=== PATIENT | female | born 1960 | race Caucasian/White ===

== ENCOUNTER 2018-12-24 21:59 | Emergency (ER) | payer OTHER, SELFPAY ==
--- NOTE | 2018-12-24 22:05 | DI.RAD_ITS ---
SYMPTOMS/DIAGNOSIS: FALL, PAIN, SWELLING RIGHT ANKLE AND RIGHT TIB/FIB: Multiple views were obtained. No priors. There is an oblique fracture of the distal fibula at the metadiaphyseal junction. The distal fracture fragment is laterally angulated and displaced almost one shafts width laterally. There is an oblique fracture through the base of the medial malleolus with lateral displacement of the distal fracture. There is a moderately displaced posterior malleolar fracture. There is lateral subluxation of the ankle joint almost 2 cm laterally. There is soft tissue swelling about the ankle. No other fracture or dislocation is seen. IMPRESSION: Trimalleolar fracture with lateral subluxation of the ankle joint.
[2018-12-24 22:09] VITALS: BP 126/71; PULSE 87; RESP 18; TEMP 37.6; O2SAT 98
--- NOTE | 2018-12-24 22:40 | ED.GENADUL_ITS ---
Discharge Plan Disposition Patient Disposition: HOME Discharge Details Chief Complaint: Orthopedic Clinical Impression: Closed trimalleolar fracture of right ankle Primary Care Provider: Rajesh Daugherty ED Provider: Abdulaziz Hoyt Home Meds and New Rx's Prescriptions: New tramadol [Ultram] 50 mg tablet 50 mg PO BID PRN (Reason: pain) Qty: 10 RF: 0 Continued calcium carbonate-vitamin D3 1 EACH tablet 1 ea PO RF: 0 acetaminophen [Acetaminophen Extra Strength] 500 MG tablet 500 mg PO Q3H PRN Qty: 2 RF: 0 ibuprofen [Ibuprofen IB] 200 MG tablet 600 mg PO PRN RF: 0 Discharge Instructions Instructions: Ankle Fracture (ED) Additional Instructions: Please take ibuprofen over the counter - 600mg every 6 hours for pain. Please take tylenol 650mg every 6 hours as needed for pain. Keep splint intact and elevate leg as much as possible. Use crutches - NO WEIGHT BEARING ON RIGHT LEG. Please follow-up with orthopedics. Call on Tuesday to arrange follow-up. Please contact your primary care physician to arrange follow-up. Return to the ER for any worsening or new concerning symptoms. Referrals: Vinay Titus MD [ [facility] STAFF PHYSICIAN] - Medical Decision Making 87-year-old female here with mechanical fall and injury to her right ankle. Ankle is deformed and swollen, quite tender to palpation. She is neurovascular intact distally. X-ray of the ankle and tib-fib reviewed and interpreted by me: Trimalleolar fracture. I called and discussed the case with Dr. Titus, smoke control supervisor orthopedics, who recommended reduction and posterior splinting and outpatient follow-up for likely ORIF this week. Patient provided verbal and written informed consent for hematoma block. Hematoma block performed without complication and patient had significant reduction in pain. Ankle fracture was reduced by me. A posterior splint was applied by me. Patient neurovascular intact post reduction and splinting. Postreduction tib fib imaging was reviewed by radiology: IMPRESSION: Reduction of trimalleolar fracture subluxation. I obtained additional oblique view which did demonstrate minimal subluxation. Plan will be for patient to follow-up with orthopedics for likely ORIF of this unstable fracture. She was instructed to keep splint intact and remain nonweightbearing on crutches. She was instructed to call the orthopedic office on Tuesday to arrange outpatient follow-up. HPI General Mode of arrival: EMS . Date/Time Provider Initiated Documentation: 12/24/18 22:05 . Limitations to Documentation: no limitations . Information obtained by: patient and EMS . HPI Narrative: 57-year-old female presents with chief complaint of ankle pain. Patient notes that she was walking on her driveway and was knocked over by her dogs. She fell and injured her ankle. This occurred just prior to arrival. Pain is severe and worse with attempted movement of her ankle and with attempted ambulation. She has no associated numbness. No other injury. EMS applied a air splint and provided fentanyl 200 mcg IV. Related Data Home Medications Medication Instructions Recorded Confirmed calcium carbonate-vitamin D3 1 ea PO 03/15/13 acetaminophen [Acetaminophen Extra 500 mg PO Q3H PRN #2 tab-cap 04/25/13 12/25/18 Strength] ibuprofen [Ibuprofen IB] 600 mg PO PRN 04/25/13 12/25/18 tramadol [Ultram] 50 mg PO BID PRN #10 tab 12/25/18 Previous Rx's Medication Instructions Recorded tramadol [Ultram] 50 mg PO BID PRN #10 tab 12/25/18 Allergies Allergy/AdvReac Type Severity Reaction Status Date / Time No Known Allergies Allergy Unverified 04/25/13 13:39 General Stated Complaint: Orthopedic FRANCISCA: 3 Review of Systems Musculoskeletal Reports as per HPI, Denies numbness and Denies tingling Neurologic Denies numbness, Denies tingling and Denies paresthesias [facility] Medical History History of hysterectomy (Chronic) Surgical History History of section (Chronic) Exam Const General: cooperative [facility] Head: normocephalic and atraumatic Neck Neck: full ROM and nontender Cardio Rate: regular rate and not tachycardic Rhythm: regular rhythm Pulses: dorsalis pedis pulses present on the right 2+ Skin Wounds: no wounds Neuro General: alert, awake, oriented x3 and tone normal Extrem General: no edema Right lower extremity: lower leg Details: no tenderness, ankle Details: tenderness Location: of the lateral malleolus and of the medial malleolus, swelling and abnormal ROM Details: pain with active ROM and pain with passive ROM; no lacerations and foot (distal sensation and motor intact) Course Vital Signs Temperature 37.6 C H 12/24/18 22:09 Pulse 87 12/24/18 22:09 Respiratory Rate 18 12/24/18 22:09 Blood Pressure 126/71 12/24/18 22:09 Pulse Oximetry 98 12/24/18 22:09 Temperature 37.6 C H 12/24/18 22:09 Temperature Source Tympanic 12/24/18 22:09 Pulse 87 12/24/18 22:09 Respiratory Rate 18 12/24/18 22:09 Blood Pressure 126/71 12/24/18 22:09 Blood Pressure Position Sitting 12/24/18 22:09 Pulse Oximetry 98 12/24/18 22:09 Oxygen Delivery Method Room Air 12/24/18 22:09 Oxygen Flow Rate 0 12/24/18 22:09 Procedures Orthopedic Fracture Reduction Fracture #1: Time Out Performed: Yes Side: right Fracture Reduction Location: tibia and fibula Analgesia: hematoma block (10mL lidocaine 2% injected into ankle with 22g needle after sterile prep) Technique: direct manipulation Post Reduction X-rays Demonstrate: acceptable reduction Post-reduction neuro exam: intact Post-reduction vascular exam: intact Splint Applied: Yes Patient Tolerated Procedure: well and no complications
--- NOTE | 2018-12-24 22:44 | DI.VRAD_ITS ---
EXAM: XR Right Ankle EXAM DATE/TIME: 12/24/2018 10:06 PM CLINICAL HISTORY: 57 years old, female; Injury or trauma; Initial encounter; Blunt trauma; Ankle; Right; Injury details: Fall/pain/swelling TECHNIQUE: Imaging protocol: XR Right ankle. Views: 3 or more views. COMPARISON: No relevant prior studies available. FINDINGS: Bones/joints: Distal fibular fracture at the metadiaphyseal junction with displacement and angulation. Medial malleolus fracture. Posterior malleolus fracture. Subluxation of the ankle joint. Subluxation measures about 15 mm. Soft tissues: Unremarkable. IMPRESSION: Trimalleolar fracture with subluxation. Dictated and Authenticated by: Nikita Smart MD. Ordering:CHRISTIANE Cintron MD
--- NOTE | 2018-12-24 22:45 | DI.VRAD_ITS ---
EXAM: XR Right Tibia and Fibula EXAM DATE/TIME: 12/24/2018 10:06 PM CLINICAL HISTORY: 57 years old, female; Injury or trauma; Fall; Initial encounter; Blunt trauma; Ankle; Right TECHNIQUE: Imaging protocol: XR Right tibia and fibula. Views: 2 views COMPARISON: No relevant prior studies available. FINDINGS: Bones/joints: Ankle injury discussed on a separate report. Remainder of the tibia and fibula are intact. Soft tissues: Unremarkable. IMPRESSION: Trimalleolar fracture. Remainder of the tibia and fibula are intact. Dictated and Authenticated by: Nikita Smart MD. Ordering:CHRISTIANE Cintron MD
[2018-12-24] MEDS: HYDROmorphone 2 MG/ML VIAL 1 MG IVP (22:50)
[2018-12-24 23:04] VITALS: O2SAT 95
[2018-12-24 23:10] VITALS: O2SAT 96
[2018-12-24 23:16] VITALS: BP 133/67; PULSE 68
[2018-12-24] MEDS: Ondansetron 4 MG/2 ML VIAL IVP (23:17)
[2018-12-24 23:20] VITALS: O2SAT 97
[2018-12-24] MEDS: Ketorolac 30 MG/ML VIAL IVP (23:20)
[2018-12-24 23:31] VITALS: BP 132/57; PULSE 67; O2SAT 91
--- NOTE | 2018-12-25 00:35 | DI.RAD_ITS ---
SYMPTOMS/DIAGNOSIS: POST REDUCTION RIGHT TIB/FIB: Comparison with prior examination. There has been significant reduction of the trimalleolar fracture/subluxation. The medial malleolar fracture shows near anatomic alignment. There has been reduction of the lateral malleolar fracture which still shows mild posterior displacement on the lateral view. The posterior malleolar fracture appears to be reduced. There is still mild lateral subluxation of the ankle joint noted. IMPRESSION: Improved alignment of the trimalleolar fracture/subluxation of the right ankle. RIGHT ANKLE: Single view. Post reduction image was obtained at 12:53 am on 12/25/18. The oblique view shows lateral angulation and displacement of the distal fibular fracture and marked lateral displacement of the medial malleolar fracture. There is lateral subluxation of the ankle joint noted. IMPRESSION: Findings again noted of a trimalleolar fracture/subluxation. There has been some improvement in the alignment of the ankle compared to the examination from 12/24/18 at 10:23 pm.
--- NOTE | 2018-12-25 00:44 | DI.VRAD_ITS ---
EXAM: XR Right Tibia and Fibula EXAM DATE/TIME: 12/25/2018 12:34 AM CLINICAL HISTORY: 57 years old, female; Pain; Lower leg; Right; Patient HX: Post reduction images TECHNIQUE: Imaging protocol: XR Right tibia and fibula. Views: 2 views. COMPARISON: CR XR tib/fib RT 12/24/2018 10:22 PM FINDINGS: Bones/joints: Interval reduction of the subluxation associated with the trimalleolar fracture. Alignment is now much more anatomic. A splint has been placed. Soft tissues: Unremarkable. IMPRESSION: Reduction of trimalleolar fracture subluxation. Dictated and Authenticated by: Nikita Smart MD. Ordering:CHRISTIANE Cintron MD
--- NOTE | 2018-12-25 01:09 | DI.VRAD_ITS ---
EXAM: XR Right Ankle EXAM DATE/TIME: 12/25/2018 1:00 AM CLINICAL HISTORY: 57 years old, female; Pain; Ankle; Right; Patient HX: Post reduction only 1 view as ap and lat are seen on post reduction tib fib films. Physician just wanted this one view TECHNIQUE: Imaging protocol: XR Right ankle. Views: 1 or 2 views. COMPARISON: CR XR ANKLE RT COMPLETE 12/24/2018 10:22 PM FINDINGS: Bones/joints: Trimalleolar fracture. Still subluxed about 8 mm on the single view. Soft tissues: Splint in place.. IMPRESSION: At least 8 mm of subluxation, but difficult to determine on this single view. Dictated and Authenticated by: Nikita Smart MD. Ordering:CHRISTIANE Cintron MD
== END 2018-12-25 01:45 | disposition home or self-care (01) ==
LOC: ER 23:05
PROVIDERS: Emergency Provider Student in an Organized Health Care Education/Training Program; PCP General Practice
DX: S82.851A Displaced trimalleolar fracture of right lower leg, initial encounter for closed fracture (principal); W01.0XXA Fall on same level from slipping, tripping and stumbling without subsequent striking against object, initial encounter
CPT/HCPCS: 29515; 96374; 96375; 99284; 73590; 73600; 73610; E0114; J1885; J2405

== ENCOUNTER 2018-12-26 15:21 | Observation (INO) | payer OTHER, SELFPAY ==
[2018-12-26] VITALS (10 sets, daily range): BP systolic 100–142; BP diastolic 55–87; PULSE 69–84; RESP 12–18; TEMP 36.1–37; O2SAT 95–100
[2018-12-26] MEDS: Lactated Ringers 1,000 ML 80 ML IV ×3 (12:22→16:48)
[2018-12-26] MEDS: Bupivacaine 0.25% Pres-Free 30 ML VIAL (13:10)
[2018-12-26] MEDS: ceFAZolin 2 GM/50 ML BAG IVPB ×3 (13:45→23:42)
--- NOTE | 2018-12-26 15:25 | DI.RAD_ITS ---
SYMPTOMS/DIAGNOSIS: TRIMALLEOLAR FRACTURE OF RIGHT ANKLE RIGHT ANKLE IN THE OR: Fluoroscopy Time: 8.3 seconds Fluoroscopy was utilized by Dr. Monteiro during the open reduction and internal fixation of the trimalleolar fracture subluxation. Alignment on the single AP view appears anatomic. Please refer to the procedure report for complete details.
--- NOTE | 2018-12-26 15:48 | DI.RAD_ITS ---
SYMPTOM/DIAGNOSIS: CHECK REDUCTION FOLLOWING ORIF RIGHT ANKLE: The examination was carried out through a posterior fiberglass splint. The patient is status post bimalleolar fracture. A plate and screw fixation device is affixed to the distal fibula and pin and screw fixation of a medial malleolar fracture is noted. The mortise joint is well maintained. In the lateral position, there is a minimally displaced fracture involving the posterior malleolus.
--- NOTE | 2018-12-26 17:28 | ROE_ITS ---
DATE OF PROCEDURE: December 26, 2018 PREOPERATIVE DIAGNOSIS: Trimalleolar fracture dislocation, right ankle. POSTOPERATIVE DIAGNOSIS: Same. PROCEDURE: Open reduction and internal fixation of trimalleolar fracture dislocation of the right an kle. Application of a short-leg Montgomery dressing and posterior fiberglass splint. ANESTHESIA: Spinal, supplemented with lower extremity blocks, Harsha Govea CRNA SURGEON: Tera Monteiro M.D. TELEVISION SPECIALIST: Blanka Ceron INDICATIONS: This is a 57-year-old white female who sustained a closed trimalleolar fracture disloca tion of her right ankle on 12/24/18 when her dogs jumped on her, causing her to twist her ankle and fa ll. She was seen in the Emergency Room where a closed reduction was performed and she was placed in a posterior splint. I reviewed those x-rays today and found that the ankle mortise was significantly displaced. I therefore recommended that open reduction and internal fixation be performed as soon a s possible. She has some minor blistering of the skin around the ankle and I felt the skin was in go od enough condition to tolerate the procedure. The risks and complications of the procedure were exp lained to the patient in detail preoperatively. PROCEDURE: The patient was taken to the Operating Room on 12/26/18. A series of blocks were administ ered to the right lower extremity by Harsha Govea CRNA. Then a spinal anesthetic was administere d. She was placed supine on the operating table. A proximal tourniquet was applied to the right thi gh and the right foot, ankle and lower leg were prepped and draped free in the usual sterile fashion. Under proximal tourniquet control, first I made a short, curved incision paralleling the anterior asp ect of the medial malleolus. There was an area of superficial blistering just proximal to the fractu re site; it was really located at the medial prominence of the medial malleolus. The incision was ca rried down through the skin and subcu. The saphenous vein that was encountered was cauterized and sp lit. There was avulsed periosteum, avulsed and displaced anteriorly from the medial malleolus. The fracture site was then entered. The fractured medial malleolus was retracted distally. The fracture site was irrigated with saline solution and curetted of any fibrous tissue and hematoma. The ankle joint was then visualized and inspected. There appeared to be no injury to the tibial plafond. Ther e was no injury to the talus. The joint was then copiously irrigated with saline solution to remove any occult debris from the ankle. The medial malleolus could then be easily reduced and there was n o block to reduction of the talus under the tibia. Attention was turned to the lateral side. A straight lateral incision was made beginning at the distal tip of the fibula and extending proximal ly about six inches. The incision was carried through the skin and subcu down to the peroneal fascia . Subperiosteal dissection was used to expose the fracture site laterally. The fracture site was c lamped after irrigating the fracture with saline solution and using a curette to remove any debris fr om the fracture site. A self-centering towel clip was then used to perform the reduction. A lag scr ew was placed from anterior to posterior across the fracture site, a 3.5 cortical screw. A 7-hole, o ne-third tubular neutralization plate was then contoured to fit the lateral fibula. The plate was th en secured to the fibula with two locking 3.5 screws distal to the fracture and three non-locking 3.5 screws proximal to the fracture. Using the C-arm image intensifier the ankle was scanned and the mo rtise was anatomically reduced, as was the fibula. The medial malleolar fragment was near anatomic, even without fixation. I then proceeded to fix the medial malleolus fracture with two parallel 0.062 K-Wires as temporary fi xation. A 4.0 cancellous screw was then placed between the K-Wires and tightened, compressing the fr acture. The posterior K-Wire was removed. The anterior K-Wire was then bent, cut short and the bent end impacted into the tip of the screw with a tamp and a mallet. A final check with the C-arm showe d anatomic reduction of the fracture, good length in the screws with the ankle mortise reconstituted. Both incisions were then irrigated with Betadine and saline solution. From the medial side, any n ecrotic subcutaneous fat was sharply debrided. The wound margins were infiltrated with 0.5% Marcaine with an epinephrine solution. Where she had some superficial blistering, I left this area alone and did not attempt to put any sutures. I then loosely approximated the skin edges with [id number] ar tension-relieving sutures using #3-0 Nylon interrupted. The subcu and the lateral incision was a pproximated with [id number]-[id number] sutures of #2-0 Vicryl suture material for the subcu and the skin ed ges were approximated with interrupted #4-0 Nylon sutures. The wounds were dressed with Xeroform gau ze, sterile gauze 4x4's, ABD pads, wrapped with a Kerlix bandage. Then a short-leg Montgomery compressive dressing was applied. A short-leg fiberglass posterior splint was then applied over the Montgomery dress ing using Willian bandages with the ankle dorsiflexed to neutral. The tourniquet was released. Blood lo ss was minimal due to tourniquet use. The patient tolerated the procedure well and was discharged to the recovery room in good condition. She will be admitted for overnight observation and pain contro adrien
[2018-12-26] MEDS: Ketorolac 30 MG/ML VIAL IVP ×2 (17:37→23:42)
[2018-12-26] MEDS: Docusate Sodium 100 MG CAP PO (19:32)
[2018-12-26] MEDS: oxyCODONE-CR 10 MG TABCR PO (19:32)
[2018-12-26] MEDS: DEXTROSE 5%-0.9% SALINE 1,000 ML 125 ML IV (21:38)
--- NOTE | 2018-12-26 22:18 | NUR.NOTE ---
Nursing Note: At 16:00 hrs, pt reeceived from PACU staff s/p ORIF on rt. ankle, via stretcher, fully awake and conversant. Right leg casted and w/ luz wrap drsg, no shadow of drainage noted. Denied of unbearable post op pain. Affected leg elevated on pillow. CSMT within normal limit. Voided twice on bedpan in good amount of clear urine. No further voiced complaints.
[2018-12-26] MEDS: Normal Saline Flush 10 ML SYR IV (23:41)
[2018-12-27] MEDS: Ondansetron 4 MG/2 ML VIAL IVP (01:19)
[2018-12-27] MEDS: Normal Saline Flush 10 ML SYR IV ×2 (01:19→05:47)
[2018-12-27 03:27] VITALS: BP 121/76; PULSE 69; RESP 18; TEMP 36.7; O2SAT 98
[2018-12-27] MEDS: DEXTROSE 5%-0.9% SALINE 1,000 ML 60 ML IV (05:46)
[2018-12-27] MEDS: Ketorolac 30 MG/ML VIAL IVP ×2 (05:48→12:06)
[2018-12-27] MEDS: ceFAZolin 2 GM/50 ML BAG IVPB (05:49)
[2018-12-27 07:33] VITALS: BP 130/77; PULSE 73; RESP 18; TEMP 37.7; O2SAT 96
[2018-12-27] MEDS: oxyCODONE-CR 10 MG TABCR PO (10:15)
[2018-12-27] MEDS: Docusate Sodium 100 MG CAP PO (10:15)
[2018-12-27] MEDS: Pantoprazole 40 MG TABCR PO (10:16)
[2018-12-27] MEDS: HYDROcodone 5/Acetaminophen 325 TAB PO (10:17)
[2018-12-27 11:20] VITALS: BP 107/64; PULSE 91; RESP 20; TEMP 37.9; O2SAT 96
--- NOTE | 2018-12-27 11:37 | PT.INIE ---
Date of service: 12/27/18 Time of Service: 11:37 PT Notes Inpatient Physical Therapy Evaluation Date: Referring Doctor: Tera Monteiro MD PT Orders: PT CONSULT: Mobilize postop ORIF of trimalleolar fracture right ankle. Touchdown weightbearing on right Precautions: Fall risk Patient Profile/Admitting Diagnosis: 57-year-old female who got tangled up with her dogs and fell resulting in a trimalleolar fracture of her right ankle on 12/24. She underwent an ORIF postop day #1 PMHX: Refer to her primary care's problem list Social History/Home Situation: Is , works at [employer] in the [place] and owns her own home. She has 6 or 7 steps onto the back deck and does not have a railing. She also split level home, and her bedroom and bathroom and kitchen are on the second floor. She has one step entering into the kitchen. Current Functional Limitations: Independent with assuming the supine to sitting, and sitting to standing positions and vice versa. Equipment Owned/DME: Has combination tub shower without a shower chair or flexible hose or grab bars. She has a friend that may have this equipment, and she is going to contact them to see what and if they are available. Subjective: Complains of numbness throughout the right lower leg along with a heaviness Objective: [] General Observation: Pleasant, cooperative in no abnormal pain behavior noted. Apprehensive about moving about. Mental Status: Alert and oriented x3 Pain: No complaints offered Vital Signs: Her resting pulse was 74 bpm and O2 sat was 97%; following ambulation her O2 sat was 97% and pulse was 105 bpm ROM: Has full functional range of motion of her articular structures throughout except the right ankle which is not evaluated due to her Montgomery compression and splint Strength: Has full motor control throughout and strength is generally rated 5/5 although she does complain of upper extremity weakness when using her crutches particularly with stair climbing. She is able to actively flex and extend the digits of her right foot Sensation: Right toes are intact to light touch Bed Mobility/Transfers: Independent with assuming the supine to sitting to standing positions and vice versa Gait: Initially ambulated with a walker nonweightbearing in the right lower extremity but is capable of resting her foot on the floor when standing. She required contact guarding initially. When she was comfortable with ambulation, switch to crutches, which I adjusted to her correct height, and she ambulated approximately 50 feet with contact guarding. Her gait became more stable and she practice. She is ascended and descended a few steps with an 8 inch step, with and without the railing. She was stable but requires contact guarding and I encouraged her to make sure her assists her, at least initially, at home. Balance: [] Static Sitting: Normal Dynamic Sitting: Normal Static Standing: Normal Dynamic Standing: Fair to good Special Tests: Mobility Limitations Standardized Measure [facility] 6 clicks Basic Mobility Inpatient Short Form: Raw Score: 21 standardized Score: 53.28 CMS Score: 20.91 CMS Modifier: CJ Informed Consent/Education: Patient instructed in purpose of PT consult and plan of care. Assessment: Patient is a 57 year old female referred to physical therapy services with the diagnosis of trimalleolar fracture of the right ankle status post ORIF. Patient presents with clinical signs and symptoms consistent with this diagnosis, as demonstrated by the following impairment level findings: Altered gait initially requiring contact guarding and now standby supervision with altered endurance. AMPAC score. Patient is assessed as a Low 49513 complexity based on the following: History: See comorbidities and social history Examination: See above for functional mutations impairments Presentation: Stable Decision Making: Low complexity based on her clinical findings Goals: Goals X1 week 9. Independent with home exercise program [] 10. Balance [] Plan of Care/Treatment Plan: Today's session consisted of the evaluation, patient education, gait training along with instruction on home program consisting of supine straight leg raises and glutes sets eventually incorporating side-lying and prone straight leg raises over the next few days. She did well with her ambulation, although initially mild unsteadiness, but this should normalize as she practices more. But still in the hospital, encouraged her to walk frequently with her crutches throughout the room in the [place] with nursing supervision. DC from PT DISCHARGE RECOMMENDATIONS: Home TREATMENT CODE/TIME: 04092/10-11 AM/60 minutes
--- NOTE | 2018-12-27 11:53 | IN_ITS ---
Date of service: 12/27/18 Time of Service: 11:37 PT Notes Inpatient Physical Therapy Evaluation Date: Referring Doctor: Tera Monteiro MD PT Orders: PT CONSULT: Mobilize postop ORIF of trimalleolar fracture right ankle. Touchdown weightbearing on right Precautions: Fall risk Patient Profile/Admitting Diagnosis: 57-year-old female who got tangled up with her dogs and fell resulting in a trimalleolar fracture of her right ankle on 12/24. She underwent an ORIF postop day #1 PMHX: Refer to her primary care's problem list Social History/Home Situation: Is , works at [employer] in the [employer] and owns her own home. She has 6 or 7 steps onto the back deck and does not have a railing. She also split level home, and her bedroom and bathroom and kitchen are on the second floor. She has one step entering into the kitchen. Current Functional Limitations: Independent with assuming the supine to sitting, and sitting to standing positions and vice versa. Equipment Owned/DME: Has combination tub shower without a shower chair or flexible hose or grab bars. She has a friend that may have this equipment, and she is going to contact them to see what and if they are available. Subjective: Complains of numbness throughout the right lower leg along with a heaviness Objective: [] General Observation: Pleasant, cooperative in no abnormal pain behavior noted. Apprehensive about moving about. Mental Status: Alert and oriented x3 Pain: No complaints offered Vital Signs: Her resting pulse was 74 bpm and O2 sat was 97%; following ambulation her O2 sat was 97% and pulse was 105 bpm ROM: Has full functional range of motion of her articular structures throughout except the right ankle which is not evaluated due to her Montgomery compression and splint Strength: Has full motor control throughout and strength is generally rated 5/5 although she does complain of upper extremity weakness when using her crutches particularly with stair climbing. She is able to actively flex and extend the digits of her right foot Sensation: Right toes are intact to light touch Bed Mobility/Transfers: Independent with assuming the supine to sitting to standing positions and vice versa Gait: Initially ambulated with a walker nonweightbearing in the right lower extremity but is capable of resting her foot on the floor when standing. She required contact guarding initially. When she was comfortable with ambulation, switch to crutches, which I adjusted to her correct height, and she ambulated approximately 50 feet with contact guarding. Her gait became more stable and she practice. She is ascended and descended a few steps with an 8 inch step, with and without the railing. She was stable but requires contact guarding and I encouraged her to make sure her assists her, at least initially, at home. Balance: [] Static Sitting: Normal Dynamic Sitting: Normal Static Standing: Normal Dynamic Standing: Fair to good Special Tests: Mobility Limitations Standardized Measure [facility] 6 clicks Basic Mobility Inpatient Short Form: Raw Score: 21 standardized Score: 53.28 CMS Score: 20.91 CMS Modifier: CJ Informed Consent/Education: Patient instructed in purpose of PT consult and plan of care. Assessment: Patient is a 57 year old female referred to physical therapy services with the diagnosis of trimalleolar fracture of the right ankle status post ORIF. Patient presents with clinical signs and symptoms consistent with this diagnosis, as demonstrated by the following impairment level findings: Altered gait initially requiring contact guarding and now standby supervision with altered endurance. AMPAC score. Patient is assessed as a Low 10317 complexity based on the following: History: See comorbidities and social history Examination: See above for functional mutations impairments Presentation: Stable Decision Making: Low complexity based on her clinical findings Goals: Goals X1 week 9. Independent with home exercise program [] 10. Balance [] Plan of Care/Treatment Plan: Today's session consisted of the evaluation, patient education, gait training along with instruction on home program consisting of supine straight leg raises and glutes sets eventually incorporating side-lying and prone straight leg raises over the next few days. She did well with her ambulation, although initially mild unsteadiness, but this should normalize as she practices more. But still in the hospital, encouraged her to walk frequently with her crutches throughout the room in the [facility] with nursing supervision. DC from PT DISCHARGE RECOMMENDATIONS: Home TREATMENT CODE/TIME: 10427/10-11 AM/60 minutes
[2018-12-27] MEDS: Normal Saline Flush 10 ML SYR (12:07)
--- NOTE | 2018-12-27 12:46 | W.PM.DS.N ---
Date of service: 12/27/18 Time of Service: 12:46 DS: Diagnosis Discharge Diagnosis (1) Closed right trimalleolar fracture: Status: Acute Discharge Plan Disposition Patient Disposition: HOME Condition: Good Discharge Details Reason For Visit: ORIF (R) ANKLE Admit Date/Time: 12/26/18 15:21 Admit Provider: Tera Monteiro Attending Provider: Tera Monteiro Primary Care Provider: Rajesh Daugherty Hospital Course Hospital Course: Patient was taken to the operative room on day of admission 12/18/2018 where she underwent a ORIF of a trimalleolar fracture dislocation of her right ankle without complications. She was admitted for pain control and mobilization. On 12/27/2018 she was independent with her crutches. She was afebrile and vital signs were stable. She was eating and drinking well. She was experiencing some nausea from the IV antibiotics. Pain was well controlled. It was felt that she had completed her acute care goals and was ready for discharge home. Home Meds and New Rx's Prescriptions: New hydrocodone-acetaminophen 5-325 mg tablet 1 tab PO Q6H PRN (Reason: pain) Qty: 20 RF: 0 Discontinued tramadol [Ultram] 50 mg tablet 50 mg PO BID PRN (Reason: pain) Qty: 10 RF: 0 No Action acetaminophen [Acetaminophen Extra Strength] 500 MG tablet 500 mg PO Q3H PRN Qty: 2 RF: 0 ibuprofen [Ibuprofen IB] 200 MG tablet 600 mg PO PRN RF: 0 Discharge Instructions Additional Instructions: Elevate R ankle when sitting. Crutches to walk. Don't step on R foot. May rest splint on floor for balance when standing. Keep dressings and splint dry and intact until return. Return to 's office in 2 weeks. Take ibuprofen 600 mg 3 times day to decrease swelling and inflammation. Take hydrocodone for breakthru pain, if needed. Referrals: Tera Monteiro MD [ [facility] STAFF PHYSICIAN] - (in 2 weeks) Activity:: Activity as Tolerated Equipment/Supplies:: Crutches Diet:: As Tolerated Discharge Orders Discharge Orders: Discharge Order (Routine); Ordered 12/27/18 Ordered By: Tera Monteiro DS: Data Vitals/I&O Vitals and I&O: Vital Signs Temperature 37.9 C H 12/27/18 11:20 Temperature Source Tympanic 12/27/18 11:20 Pulse 91 H 12/27/18 11:20 Pulse Rhythm Regular 12/26/18 23:43 Respiratory Rate 20 12/27/18 11:20 Respiratory Effort 12/26/18 23:43 Respiratory Depth Normal 12/26/18 23:43 Respiratory Pattern Normal 12/26/18 23:43 Blood Pressure 107/64 12/27/18 11:20 Pulse Oximetry 96 12/27/18 11:20 Oxygen Delivery Method Room Air 12/27/18 11:20 Oxygen Flow Rate 0 12/27/18 11:20 Pain Level 0 12/27/18 12:06 Intake & Output 12/26/18 12/27/18 12/27/18 23:59 11:59 23:59 Intake Total 1754.333 / 7384.544 5618.833 / 1515.833 Output Total 700 / 700 500 / 500 Balance 1054.333 / 7756.850 4228.833 / 1015.833 Weight 91.5 kg Intake: IV 1514.333 / 1514.333 795.833 / 795.833 Oral 240 / 240 720 / 720 Output: Urine 700 / 700 500 / 500 Other: Urine Color Yellow Light Niki Urine Appearance Clear Clear Urine Odor Normal Normal Emesis Description None Voiding Methods Bedpan Bedpan [facility] Social History Smoking/Tobacco Use Status: Never Drug use: Never Substance use type: does not use Do you feel safe at home: Yes Do you feel safe in your relationship?: Yes
--- NOTE | 2018-12-27 12:49 | DSE_ITS ---
Date of service: 12/27/18 Time of Service: 12:46 DS: Diagnosis Discharge Diagnosis (1) Closed right trimalleolar fracture: Status: Acute Discharge Plan Disposition Patient Disposition: HOME Condition: Good Discharge Details Reason For Visit: ORIF (R) ANKLE Admit Date/Time: 12/26/18 15:21 Admit Provider: Tera Monteiro Attending Provider: Tera Monteiro Primary Care Provider: Rajesh Daugherty Hospital Course Hospital Course: Patient was taken to the operative room on day of admission 12/18/2018 where she underwent a ORIF of a trimalleolar fracture dislocation of her right ankle without complications. She was admitted for pain control and mobilization. On 12/27/2018 she was independent with her crutches. She was afebrile and vital signs were stable. She was eating and drinking well. She was experiencing some nausea from the IV antibiotics. Pain was well controlled. It was felt that she had completed her acute care goals and was ready for discharge home. Home Meds and New Rx's Prescriptions: New hydrocodone-acetaminophen 5-325 mg tablet 1 tab PO Q6H PRN (Reason: pain) Qty: 20 RF: 0 Discontinued tramadol [Ultram] 50 mg tablet 50 mg PO BID PRN (Reason: pain) Qty: 10 RF: 0 No Action acetaminophen [Acetaminophen Extra Strength] 500 MG tablet 500 mg PO Q3H PRN Qty: 2 RF: 0 ibuprofen [Ibuprofen IB] 200 MG tablet 600 mg PO PRN RF: 0 Discharge Instructions Additional Instructions: Elevate R ankle when sitting. Crutches to walk. Don't step on R foot. May rest splint on floor for balance when standing. Keep dressings and splint dry and intact until return. Return to 's office in 2 weeks. Take ibuprofen 600 mg 3 times day to decrease swelling and inflammation. Take hydrocodone for breakthru pain, if needed. Referrals: Tera Monteiro MD [ [facility] STAFF PHYSICIAN] - (in 2 weeks) Activity:: Activity as Tolerated Equipment/Supplies:: Crutches Diet:: As Tolerated Discharge Orders Discharge Orders: Discharge Order (Routine); Ordered 12/27/18 Ordered By: Tera Monteiro DS: Data Vitals/I&O Vitals and I&O: Vital Signs Temperature 37.9 C H 12/27/18 11:20 Temperature Source Tympanic 12/27/18 11:20 Pulse 91 H 12/27/18 11:20 Pulse Rhythm Regular 12/26/18 23:43 Respiratory Rate 20 12/27/18 11:20 Respiratory Effort 12/26/18 23:43 Respiratory Depth Normal 12/26/18 23:43 Respiratory Pattern Normal 12/26/18 23:43 Blood Pressure 107/64 12/27/18 11:20 Pulse Oximetry 96 12/27/18 11:20 Oxygen Delivery Method Room Air 12/27/18 11:20 Oxygen Flow Rate 0 12/27/18 11:20 Pain Level 0 12/27/18 12:06 Intake & Output 12/26/18 12/27/18 12/27/18 23:59 11:59 23:59 Intake Total 1754.333 / 9356.928 3380.833 / 1515.833 Output Total 700 / 700 500 / 500 Balance 1054.333 / 3461.450 3900.833 / 1015.833 Weight 91.5 kg Intake: IV 1514.333 / 1514.333 795.833 / 795.833 Oral 240 / 240 720 / 720 Output: Urine 700 / 700 500 / 500 Other: Urine Color Yellow Light Niki Urine Appearance Clear Clear Urine Odor Normal Normal Emesis Description None Voiding Methods Bedpan Bedpan [facility] Social History Smoking/Tobacco Use Status: Never Drug use: Never Substance use type: does not use Do you feel safe at home: Yes Do you feel safe in your relationship?: Yes
--- NOTE | 2018-12-27 19:16 | PDOC.CMIN ---
- If Service Date Differs Date of service: 12/27/18 Time of Service: 19:16 Care Management Initial Assess REASON FOR HOSPITALIZATION:: ORIF Right ankle PAST MEDICAL HISTORY/PAST SURGICAL HISTORY:: Hysterectomy, C section and excision of mass lacrimal gland. PREVIOUS FUNCTIONAL STATUS/SOCIAL/FAMILY SUPPORTS:: Vibha lives in her own home with her spouse, in [place], [place] she has two grown children. She is indepdent with [employer]. trans[employer]ation and works fulltime. She states her injury occured after tripping over her dogs as she was walking. She describes a supportive family and states she has plenty of equipment from a sister in law who fractured her ankle in Aug 2018. CURRENT FUNCTIONAL STATUS:: Carola is alert and engaged she is discouraged she will need to be non weight bearing for the next six weeks. She states she will get her spouse to do the basement chores. She was stair trained today. She states it was to difficult to use the walker and would prefer the crutches which she has been using. She does not request any other services at this time. She states she will have help at home. ADVANCE DIRECTIVES:: None on file Has patient been provided with information about the portal?: Yes Did the patient sign up for the portal?: No CODE STATUS:: Full Code INSURANCE COVERAGE / FINANCIAL ISSUES:: [employer]hsan CURRENT HOME/COMMUNITY SERVICES/EQUIPMENT:: Carola has a commode, crutches, and walker at home if she needs it. PRIMARY CARE PHYSICIAN:: POTENTIAL DISCHARGE NEEDS:: Follow up with in two weeks as directed or sooner for questions of concerns. PATIENT/FAMILY EDUCATION NEEDS:: Discharge education, limitations and follow up plan of care including ask me three and self management. ANTICIPATED BARRIERS TO DISCHARGE:: None identified. TRANSPORTATION:: Via private car with spouse at time of discharge PLAN:: Carola is being discharged home today. She has a plan to manage pain and will follow up with as directed. She feels she is ready to return home and that she has support to assist her. Carola has all the equipment she needs at including crutches. She will be non weight bearing for 6 weeks which she is aware of.
--- NOTE | 2018-12-28 10:38 | PT.INDS ---
Date of service: 12/28/18 PT Notes Inpatient Physical Therapy Discharge Summary Dates: 12/28/2018 Dates of Service: 12/27/2018 only This is a clinical summary of care provided on the duration of dates listed above. No charge was made in the completion of this documentation. Referring Doctor: Tera Monteiro MD PT Orders: PT CONSULT: Mobilize postop ORIF of trimalleolar fracture right ankle. Touchdown weightbearing on right Precautions: Fall risk Patient Profile/Admitting Diagnosis: 57-year-old female who got tangled up with her dogs and fell resulting in a trimalleolar fracture of her right ankle on 12/24. She underwent an ORIF postop day #1 PMHX: Refer to her primary care's problem list Social History/Home Situation: Is , works at [employer] in the [employer] and owns her own home. She has 6 or 7 steps onto the back deck and does not have a railing. She also split level home, and her bedroom and bathroom and kitchen are on the second floor. She has one step entering into the kitchen. Current Functional Limitations: Independent with assuming the supine to sitting, and sitting to standing positions and vice versa. Equipment Owned/DME: Has combination tub shower without a shower chair or flexible hose or grab bars. She has a friend that may have this equipment, and she is going to contact them to see what and if they are available. Subjective: Complains of numbness throughout the right lower leg along with a heaviness Objective: General Observation: NT Mental Status: NT Pain: NT ROM: Has full functional range of motion of her articular structures throughout except the right ankle which is not evaluated due to her Montgomery compression and splint Strength: Has full motor control throughout and strength is generally rated 5/5 although she does complain of upper extremity weakness when using her crutches particularly with stair climbing. She is able to actively flex and extend the digits of her right foot Sensation: Right toes are intact to light touch Bed Mobility/Transfers: Independent with assuming the supine to sitting to standing positions and vice versa Gait: Initially ambulated with a walker nonweightbearing in the right lower extremity but is capable of resting her foot on the floor when standing. She required contact guarding initially. When she was comfortable with ambulation, switch to crutches, which I adjusted to her correct height, and she ambulated approximately 50 feet with contact guarding. Her gait became more stable and she practice. She is ascended and descended a few steps with an 8 inch step, with and without the railing. She was stable but requires contact guarding and I encouraged her to make sure her assists her, at least initially, at home. Balance: Static Sitting: Normal Dynamic Sitting: Normal Static Standing: Normal Dynamic Standing: Fair to good Assessment: Patient is a 57 year old female referred to physical therapy services with the diagnosis of trimalleolar fracture of the right ankle status post ORIF. Patient presents with clinical signs and symptoms consistent with this diagnosis, as demonstrated by the following impairment level findings: Altered gait initially requiring contact guarding and now standby supervision with altered endurance. AMPAC score. Goals: Goals X1 week Independent with home exercise program MET Good standing balance NOT MET Plan of Care/Treatment Plan: Today's session consisted of the evaluation, patient education, gait training along with instruction on home program consisting of supine straight leg raises and glutes sets eventually incorporating side-lying and prone straight leg raises over the next few days. She did well with her ambulation, although initially mild unsteadiness, but this should normalize as she practices more. But still in the hospital, encouraged her to walk frequently with her crutches throughout the room in the [facility] with nursing supervision. DC from PT DISCHARGE RECOMMENDATIONS: Home TREATMENT CODE/TIME: NC. Thank you very much for this referral. Angella Mcintyre PT, DPT, CLT [facility] SUBJECTIVE: [] OBJECTIVE: [] Pain: [] ROM: [] L UE: [] R UE: [] L LE: [] R LE: [] STRENGTH: L UE: [] R UE: [] L LE: [] R LE: [] BED MOBILITY/TRANSFERS: Supine-sit [] Sit-supine [] Sit-stand [] Stand-sit [] Bed-Chair [] Chair-bed [] GAIT: BALANCE: Static sitting Dynamic sitting Static standing Dynamic standing SPECIAL TESTS: [] ASSESSMENT: [] GOALS ( Met / Not Met): [] Goals: [] DISCHARGE PLAN/RECOMMENDATIONS: []
== END 2018-12-27 14:15 | disposition home or self-care (01) ==
LOC: MS 16:12
PROVIDERS: Admitting Provider Orthopaedic Surgery; PCP General Practice; Visit Provider Orthopaedic Surgery
PROC: 0QSJ04Z Reposition Right Fibula with Internal Fixation Device, Open Approach (ICD-10-PCS; CPT 27822; principal; 2018-12-26 12:30)
DX: S82.851A Displaced trimalleolar fracture of right lower leg, initial encounter for closed fracture (principal); X50.1XXA Overexertion from prolonged static or awkward postures, initial encounter; G89.18 Other acute postprocedural pain
CPT/HCPCS: 27822; C1713; 76942; 97161; NC; 73610; G0378; J0690; J1885; J2250; J2405; J3010; J7042

== ENCOUNTER 2019-01-03 06:24 | Observation (INO) | payer OTHER, SELFPAY ==
[2019-01-03] VITALS (73 sets, daily range): BP systolic 125–160; BP diastolic 56–82; PULSE 70–99; RESP 12–21; TEMP 36.9–37.5; O2SAT 91–100
--- NOTE | 2019-01-03 07:03 | ED.GENADUL_ITS ---
Discharge Plan Disposition Patient Disposition: [facility] INPATIENT Condition: Stable Discharge Details Chief Complaint: Abd Prob Clinical Impression: Cholecystitis with cholelithiasis Admit Date/Time: 01/03/19 17:47 Admit Provider: Melissa Barriga Attending Provider: Melissa Barriga Primary Care Provider: Rajesh Daugherty ED Provider: Saurabh Reilly Discharge Instructions Instructions: Laparoscopic Cholecystectomy (DC) Additional Instructions: Activity at Home after surgery: 1. Make sure you walk outside at least 4 times per day 2. You should be able to climb a flight of stairs 3. No driving while in pain or taking pain medications 4. No strenuous activity or heavy lifting for 2 weeks (laparoscopic surgery) Diet, Nutrition, & wound healin. Avoid alcohol until after you are recovered from your surgery 2. Make sure to eat plenty of lean protein (meat, fish, eggs, cottage cheese, beans) 3. Eat a variety of fruits and vegetables. Eat plenty of high fiber foods to avoid constipation. 4. Drink plenty of liquids to stay hydrated and avoid constipation Pain Medications: 1. Alternate Tylenol 650 mg every 6 hours as needed and alternate with Ibuprofen 600 mg every 6 hours 2. Take Hydrocodon/ APAP as Rx. Do not take extra Tylenol if you are taking hydrocodon Other: Ranitidine (acid carbon paste mixer operator) 150 mg 2 x a day while taking ibuprofen to protect stomach For Constipation: 1. Take Milk of Magnesia or MiraLax as needed for constipation Other: 1. You may shower daily. Do not scrub the incisions 2. Do not soak the incisions for 1 week 3. You may alternate ice and heat as needed for pain and swelling Wound Care: 1. Keep the incisions clean and dry Please call our office if you develop: 1. Fevers >101.5 2. Nausea or Vomiting 3. Worsening pain 4. Redness and thick discharge from the wounds If after hours please call the Hospital at and ask to speak to the on-call surgeon Forms: Nursing Discharge Form Referrals: Melissa Barriga MD [ [facility] STAFF PHYSICIAN] - 01/19/19 10:30 am Medical Decision Making <Patrick Hart MD - Last Filed: 01/03/19 20:21> Patient with nausea, vomiting and epigastric pain for the last few days. Has been taking ibuprofen every 6 hours since her ankle fracture. Quite likely that this is nonsteroidal induced. Will place an IV and get laboratory studies. Will give fluids, Phenergan, famotidine for the abdominal symptoms. Will give morphine for her ankle pain as she is been unable to take anything for pain. 07:45 -patient's EKG is fine. Laboratory studies are significant for elevated liver function including bilirubin and transaminases. Patient is not a drinker. She really has not been using acetaminophen or hydrocodone/acetaminophen very much. She is mostly been using ibuprofen. There is been no wild mushroom ingestion. There is no good explanation for her elevated liver function test. She does have epigastric discomfort but has no right upper quadrant tenderness. We will proceed with right upper quadrant ultrasound. She is feeling a little better after the Phenergan and Pepcid. She has not yet received the morphine as nursing wanted to make sure the nausea and vomiting was better first. Patient will be signed over to Dr. Reilly. Medical Records Medical records reviewed: Yes I reviewed the patient's medical records. <Saurabh Reilly MD - Last Filed: 01/03/19 14:51> pt has remained stable, u/s consistent with likely early cholecystitis with gallstones. Surgery consulted, Dr. Hawk will take tot he OR HPI <Patrick Hart MD - Last Filed: 01/03/19 20:21> General Mode of arrival: wheelchair . Date/Time Provider Initiated Documentation: 01/03/19 06:55 . Limitations to Documentation: no limitations . Information obtained by: patient and old records reviewed . HPI Narrative: Patient presents to ED with complaints of nausea, vomiting and epigastric pain. Patient is status post right ankle ORIF for trimalleolar fracture/dislocation. She has been taking acetaminophen, ibuprofen, Vicodin for pain. She started to develop nausea and vomiting with associated epigastric discomfort over the weekend. Dr. Monteiro prescribed Zofran for her. This has not helped. She has been unable to take her medications over the last couple of days because of nausea and vomiting. She has been able to keep some fluids down. She comes in this morning because she is very uncomfortable with worsening epigastric pain. There has been no hematemesis or coffee-ground emesis. Has no fever that she is aware of. She has no pain radiating to the back. She has no chest pain. She has increased ankle pain but assumes that is because she has not been able to take any type of pain medication. Related Data Home Medications Medication Instructions Recorded Confirmed acetaminophen [Acetaminophen Extra 500 mg PO Q3H PRN #2 tab-cap 04/25/13 01/03/19 Strength] ibuprofen [Ibuprofen IB] 600 mg PO PRN 04/25/13 01/03/19 hydrocodone-acetaminophen 1 tab PO Q6H PRN #20 tab 12/27/18 01/03/19 ondansetron HCl 4 mg tablet 4 mg PO QID PRN 01/01/19 01/03/19 ranitidine HCl [Acid Hot Wire Glass Tube Cutter 150 mg PO BID #60 tab 01/03/19 (ranitidine)] Previous Rx's Medication Instructions Recorded hydrocodone-acetaminophen 1 tab PO Q6H PRN #20 tab 12/27/18 ranitidine HCl [Acid Hot Wire Glass Tube Cutter 150 mg PO BID #60 tab 01/03/19 (ranitidine)] Allergies Allergy/AdvReac Type Severity Reaction Status Date / Time cefazolin AdvReac Unknown Nausea Unverified 01/03/19 06:29 General Stated Complaint: Abd Prob FRANCISCA: 3 Review of Systems <Patrick Hart MD - Last Filed: 01/03/19 20:21> Review of Systems 05/14 Review of Systems completed and is negative except as stated above in HPI (Systems reviewed: Const, Eyes, ENT, Resp, CV, GI, , MSK, Skin, Neuro) PFSH <Patrick Hart MD - Last Filed: 01/03/19 20:21> Medical History Cholecystitis with cholelithiasis (Acute) Surgical History History of laparoscopic cholecystectomy (Acute ~01/03/19) S/P ORIF (open reduction internal fixation) fracture (Acute) History of section (Chronic) History of hysterectomy (Chronic) H/O excision of mass (Inactive) Social History Smoking/Tobacco Use Status: Never Drug use: Never Substance use type: does not use Do you feel safe at home: Yes Do you feel safe in your relationship?: Yes Exam <Patrick Hart MD - Last Filed: 01/03/19 20:21> Narrative Exam Narrative: Vitals: Afebrile with normal vitals. Const: WDWN female who appears uncomfortable. HEENT: NC/AT. Normal facial exam. Eyes: Normal conjunctiva and sclera. Neck: Supple. Trachea midline. Lungs: Normal respiratory effort. Lungs are clear. Cor: RRR without murmur/gallop. Good radial pulses. GI: Soft. NT/ND. No guarding or rebound. Neuro: A+O x 3. CN grossly in tact. Good strength and no focal deficit. Ext: RLE in bulky Montgomery. Toes with normal sensation and color. Skin: Warm and dry. Course <Patrick Hart MD - Last Filed: 01/03/19 20:21> Vital Signs Temperature 98.6 F 01/03/19 06:29 Pulse 83 01/03/19 06:29 Respiratory Rate 16 01/03/19 06:29 Blood Pressure 138/78 01/03/19 06:29 Pulse Oximetry 96 01/03/19 06:29 Temperature 98.6 F 01/03/19 06:29 Temperature Source Temporal Artery Scan 01/03/19 06:29 Pulse 83 01/03/19 06:29 Respiratory Rate 16 01/03/19 06:29 Respiratory Effort 01/03/19 06:29 Blood Pressure 138/78 01/03/19 06:29 Blood Pressure Position Sitting 01/03/19 06:29 Pulse Oximetry 96 01/03/19 06:29 Oxygen Delivery Method Room Air 01/03/19 06:29 Oxygen Flow Rate 0 01/03/19 06:29 Sign Out <Patrick Hart MD - Last Filed: 01/03/19 20:21> Sign Out Data: Sign Out Comment: Signed out to Dr. Reilly with ultrasound of the abdomen pending for elevated LFTs. Last updated by Patrick Hart MD at 01/03/19 08:08
[2019-01-03] MEDS: Lactated Ringers 1,000 ML 1000 ML IV ×2 (07:10→08:47)
[2019-01-03 07:14] LABS: Basophils % 0.9; Eosinophils % 6.6; HCT 38.2 % (36.0-46.0); HGB 12.4 g/dL (12.0-15.5); Lymphocytes % 4.9; Mean Corp. HGB Concentration 32.5 g/dL (32.0-36.0); Mean Corpuscular Hemoglobin 28.6 pg (27.0-33.0); Mean Corpuscular Volume 88.2 fL (80-95); Mean Platelet Volume 9.9 fL (8.0-11.0); Monocytes % 5.8; Neutrophils % 80.7; Platelet Count 355 x1000/uL (130-400); RBC 4.33 m/cumm (4.00-5.20); White Blood Cell Count 5.49 k/cumm (4.4-10.8)
[2019-01-03 07:15] LABS: Abs Immature Grans 0.06 k/cumm (0.0-0.09); Absolute Basophil Count 0.05 k/cumm (0.0-0.2); Absolute Eosinophil Count 0.36 k/cumm (0.0-0.7); Absolute Lymphocyte Count 0.27 k/cumm (1.2-3.4); Absolute Monocyte Count 0.32 k/cumm (0.11-0.7); Absolute Neutrophil Count 4.43 k/cumm (1.2-6.7); Immature Grans % 1.1
[2019-01-03 07:29] LABS: ALT 970 U/L (12-78); AST 417 U/L (15-37); Albumin 3.4 g/dL (3.4-5.0); Alkaline Phosphatase 398 U/L (46-116); Anion Gap 10.4 mmol/L (3-11); BUN 19 mg/dL (7-18); Bilirubin, Total 3.7 mg/dL (0.2-1.0); CO2 24.6 mmol/L (21.0-32.0); CREATININE 1.37 mg/dL (0.55-1.02); Calcium 9.7 mg/dL (8.5-10.1); Chloride 101 mmol/L (98-107); Glucose 129 mg/dL (70-100); Potassium 3.9 mmol/L (3.5-5.1); Sodium 136 mmol/L (136-145); Total Protein 8.1 g/dL (6.4-8.2)
[2019-01-03 07:31] LABS: Lipase 149 U/L (73-393); Magnesium 2.2 mg/dL (1.8-2.4)
[2019-01-03 07:34] LABS: Troponin I < 0.02 ng/mL (0.00-0.06)
--- NOTE | 2019-01-03 07:54 | DI.US_ITS ---
SYMPTOM/DIAGNOSIS: UPPER ABD PAIN, ELEVATED LFT'S ABDOMEN ULTRASOUND: Routine examination was performed. The abdominal aorta is of normal caliber. The inferior vena cava is unremarkable. The pancreas is unremarkable. There is diffuse increased echogenicity of the liver consistent with fatty infiltration. No hepatic mass is seen. The liver is enlarged measuring 20 cm. in length. There is antegrade flow in the portal vein. There are numerous stones seen within the gallbladder. There is a negative sonographic Triana's sign. The gallbladder wall measures .5 cm. There does appear to be a small amount of pericholecystic fluid present. The common duct is within normal limits at .4 cm. The pancreas, spleen and kidneys are unremarkable. IMPRESSION: 1. Cholelithiasis. Mild pericholecystic fluid. No biliary ductal dilatation. 2. Hepatic steatosis.
[2019-01-03] MEDS: FAMOTIDINE 20 MG/50 ML BAG 100 MG IVPB (08:04)
[2019-01-03] MEDS: MORPHine 10 MG/ML VIAL 4 MG IVP (08:05)
[2019-01-03] MEDS: Ondansetron 4 MG/2 ML VIAL IVP (09:10)
[2019-01-03 09:27] LABS: Acetaminophen < 2 ug/mL (10-30)
[2019-01-03 09:47] LABS: Bilirubin Small (Negative); Blood Trace-intact (Negative); Clarity Clear; Glucose Negative (Negative); Ketones Negative (Negative); Leukocyte Esterase Negative (Negative); Nitrite Negative (Negative); Specific Gravity 1.015 (1.005-1.025); pH 8.5 (5-8)
[2019-01-03 10:13] LABS: Epithelial Cells Many HPF (Negative)
[2019-01-03 10:14] LABS: C & S Indicated? No/Sq. Contamination
[2019-01-03 11:01] LABS: Bilirubin, Direct 2.87 mg/dL (0.00-0.20)
--- NOTE | 2019-01-03 11:04 | W.PREOPHP ---
Documented by User: GINA Villanueva 01/03/19 11:26 Date of service: 01/03/19 Time of Service: 11:04 Assessment and Plan (1) Cholecystitis with cholelithiasis: Current visit: Yes Status: Acute A// 58 y/o female with 3 day history of abdominal pain, N, V and anorexia presented to the ER. US showed cholithiasis and pericholecystic fluid suggesting Cholecystitis. Per patient report she has not been able to eat x 3 days. Total bilirubin 3.7, AST 417, ALT 970, Alk phos 398. Lipase and troponin levels normal. Discussed the procedure of having a laproscopic cholecystectomy with Dr. Barriga. Discussed the risk of bleeding, injury the bile duct, and liver. Questions were answered to patient satisfaction. Discussed Dr. Barriga will also review the procedure and risks with them prior to the surgery. Secondary to her recent surgery on 12/26/18 and being non-weight bearing on her R leg and given she has not had anything to eat for 3 days, her family is concerned about taking her home later today. Discussed the potential of Mrs. Dinh being kept overnight for observation to ensure she is taking in PO prior to d/c home. P// Laproscopic Cholecystectomy with Dr. Barriga. Qualifiers: Biliary obstruction: without biliary obstruction Cholelithiasis location: gallbladder History of Present Illness Chief Complaint: Abdominal pain, Nausea and Vomiting Narrative: 58 y/o female presented to the ER with 3 day history of abdominal pain, nausea, vomiting and anorexia. She is accompanied by her , daughter and sister. Denies hematemesis. She is s/p right ankle ORIF for trimalleolar fracture with Dr. Monteiro on 12/26/18. She reports she has been able to take pain medications secondary to her nausea and vomiting. US in the ER shows cholelithasis, mild pericholecystic fluid. No biliary ductal dilation and Hepatic steatosis. Total Bilirubin elevated at 3.7, AST 417, ALT 970 Alkaline phosptase 398, Lipase was nml, Troponin at 07:05 was normal. Patient denies any history of allergic reactions to anesthesia. Of note she reports history of nausea and vomiting after anesthesia. She denies any history of abnormal bleeding or blood clotting disorder. Denies any chest pain, palpitations, syncope, dypsnea or dypsnea with exertion. She denies use of tobacco, cigarettes, ETOH, marijuana or any other recreational drugs. Review of Systems Constitutional Reports as per HPI, Reports anorexia, Denies chills, Reports fatigue, Denies fever(s) and Denies night sweats Cardiovascular Denies chest pain, Denies chest pain at rest, Denies chest pain with activity, Denies syncope, Denies rapid heart rate, Denies palpitations, Denies dyspnea and Denies dyspnea on exertion Respiratory Denies chest congestion, Denies cough, Denies dyspnea, Denies dyspnea on exertion and Denies wheezing Gastrointestinal Reports abdominal pain, Denies constipation, Denies diarrhea, Reports nausea, Reports vomiting and Denies hematemesis Musculoskeletal Comments: C/o right ankle pain s/p surgery on 12/26/18, which is dressed with Montgomery dressing. Neurologic Denies syncope Endocrine Reports fatigue and Denies palpitations Allergic/Immunologic Denies wheezing [facility] Surgical History S/P ORIF (open reduction internal fixation) fracture (Acute) History of section (Chronic) History of hysterectomy (Chronic) H/O excision of mass (Inactive) Social History Smoking/Tobacco Use Status: Never Drug use: Never Substance use type: does not use Do you feel safe at home: Yes Do you feel safe in your relationship?: Yes Meds Home Medications Medication Instructions Recorded Confirmed Type acetaminophen [Acetaminophen Extra 500 mg PO Q3H PRN #2 tab-cap 04/25/13 01/03/19 History Strength] ibuprofen [Ibuprofen IB] 600 mg PO PRN 04/25/13 01/03/19 History hydrocodone-acetaminophen 1 tab PO Q6H PRN #20 tab 12/27/18 01/03/19 Rx ondansetron HCl 4 mg tablet 4 mg PO QID PRN 01/01/19 01/03/19 History Allergies Allergy/AdvReac Type Severity Reaction Status Date / Time cefazolin AdvReac Unknown Nausea Unverified 01/03/19 06:29 Exam Const General: cooperative and comfortable Orientation: alert and oriented x3 HENMT Head: normal to inspection Ears: hearing grossly normal bilaterally General nose exam: external nose normal Face and sinus: normal facial exam Resp Effort & Inspection: normal respiratory effort, no audible wheezes and no cough Auscultation: clear to auscultation bilaterally Cardio Rate: regular rate Rhythm: regular rhythm Heart Sounds: S1 normal, S2 normal and murmur GI Inspection: normal to inspection and non-distended Palpation: soft, no guarding and nontender (patient has recieved pain medications. ) Auscultation: no hypoactive bowel sounds Extrem Other: Montgomery dressing on Right leg. She is currently non-weight bearing. Results Labs : 01/03/19 07:05 01/03/19 07:05 Laboratory Results - last 24 hr 01/03/19 01/03/19 01/03/19 07:05 07:05 07:05 WBC 5.49 RBC 4.33 Hgb 12.4 Hct 38.2 MCV 88.2 MCH 28.6 MCHC 32.5 RDW 14.0 Plt Count 355 MPV 9.9 Immature Gran % 1.1 Neutrophils % 80.7 Lymphocytes % 4.9 Monocytes % 5.8 Eosinophils % 6.6 Basophils % 0.9 Absolute Neutrophils 4.43 Absolute Lymphocytes 0.27 L Absolute Monocytes 0.32 Absolute Eosinophils 0.36 Absolute Basophils 0.05 Sodium 136 Potassium 3.9 Chloride 101 Carbon Dioxide 24.6 Anion Gap 10.4 BUN 19 H Creatinine 1.37 H Estimated GFR/1.73 m2 39.60 Glucose 129 H Calcium 9.7 Magnesium 2.2 Total Bilirubin 3.7 H Conjugated Bilirubin AST 417 H ALT 970 H Alkaline Phosphatase 398 H Troponin I < 0.02 Total Protein 8.1 Albumin 3.4 Lipase 149 Urine Color Urine Clarity Urine pH Ur Specific [place] Urine Protein Urine Ketones Urine Blood Urine Nitrite Urine Bilirubin Urine Urobilinogen Ur Leukocyte Esterase Urine RBC Urine WBC Ur Epithelial Cells Urine Crystals Urine Bacteria Urine Mucus Ur Culture Indicated? Urine Glucose Acetaminophen 01/03/19 01/03/19 01/03/19 07:05 09:32 10:25 WBC RBC Hgb Hct MCV MCH MCHC RDW Plt Count MPV Immature Gran % Neutrophils % Lymphocytes % Monocytes % Eosinophils % Basophils % Absolute Neutrophils Absolute Lymphocytes Absolute Monocytes Absolute Eosinophils Absolute Basophils Sodium Potassium Chloride Carbon Dioxide Anion Gap BUN Creatinine Estimated GFR/1.73 m2 Glucose Calcium Magnesium Total Bilirubin Conjugated Bilirubin 2.87 H AST ALT Alkaline Phosphatase Troponin I Total Protein Albumin Lipase Urine Color Yellow Urine Clarity Clear Urine pH 8.5 H Ur Specific [place] 1.015 Urine Protein Trace H Urine Ketones Negative Urine Blood Trace-intact H Urine Nitrite Negative Urine Bilirubin Small H Urine Urobilinogen 1.0 H Ur Leukocyte Esterase Negative Urine RBC Not Applicable Urine WBC Not Applicable Ur Epithelial Cells Many Urine Crystals Not Applicable Urine Bacteria Not Applicable Urine Mucus Not Applicable Ur Culture Indicated? No/sq. contamination Urine Glucose Negative Acetaminophen < 2 L Last Vital Signs Temp 37.0 C 01/03/19 06:29 Pulse 83 01/03/19 10:01 Resp 16 01/03/19 06:29 BP 151/63 H 01/03/19 10:01 Pulse Ox 93 L 01/03/19 10:10 Documented by User: Melissa Barriga MD 01/03/19 15:05 PFSH Surgical History S/P ORIF (open reduction internal fixation) fracture (Acute) History of section (Chronic) History of hysterectomy (Chronic) H/O excision of mass (Inactive) Social History Smoking/Tobacco Use Status: Never Drug use: Never Substance use type: does not use Do you feel safe at home: Yes Do you feel safe in your relationship?: Yes Meds Home Medications Medication Instructions Recorded Confirmed Type acetaminophen [Acetaminophen Extra 500 mg PO Q3H PRN #2 tab-cap 04/25/13 01/03/19 History Strength] ibuprofen [Ibuprofen IB] 600 mg PO PRN 04/25/13 01/03/19 History hydrocodone-acetaminophen 1 tab PO Q6H PRN #20 tab 12/27/18 01/03/19 Rx ondansetron HCl 4 mg tablet 4 mg PO QID PRN 01/01/19 01/03/19 History Allergies Allergy/AdvReac Type Severity Reaction Status Date / Time cefazolin AdvReac Unknown Nausea Unverified 01/03/19 06:29 Results Labs : 01/03/19 07:05 01/03/19 07:05
[2019-01-03] MEDS: Normal Saline 1,000 ML 150 ML IV ×2 (15:20→19:08)
[2019-01-03] MEDS: PIPERACILLIN/TAZO 3.375 GM in Normal Saline 50 ML IVPB (15:20)
[2019-01-03] MEDS: Bupivacaine LIPOSOME/PF 133 MG/10 ML VIAL IJ (15:45)
--- NOTE | 2019-01-03 15:55 | W.PM.OP ---
Date of service: 01/03/19 Time of Service: 18:04 Operative Note DATE OF PROCEDURE: 01/03/19 PRE-OP DIAGNOSIS: Acute Cholecystitis POST-OP DIAGNOSIS: same PROCEDURE: laparoscopic Cholecystectomy with intra-operative cholangiogram SURGEON: Melissa Barriga BANKRUPTCY PARALEGAL: Mayur Salcido ANESTHESIA: GETA (ASA 2/ Mariel Govea CRNA) and regional (erector block) ESTIMATED BLOOD LOSS: 25 PATHOLOGY: other (Gallbladder) COMPLICATIONS: None Patient was transported to: PACU Patient's condition: stable Indications: Mrs. ruiz is a pleasant 58 year old female who came to the ER with a 3 day history of RUQ/epigastric abdominal pain, nausea and vomiting. US done in the ER showed pericholecystitis fluid and Gallstones. No Billiary dilatation was noted. Labs were significant for elevated Bilirubin and LFT's. Lap. Malu with cholangiogram was recomended. Risks, benefits and complications were reviewed and she wished to proceed. No guarantees were given or implied. Findings: The neck of the Gallbladder was folded on itself and adhered with scar tissue. There was one small stone noted when I cut the cystic duct to place a Cholagiogram catheter. Cholangiogram showed no filling defects and contrast was seen in the intra-hepatic billiary tree and the duodenum. Procedure Description: After informed consent was obtained the patient was taken to the operating room, placed in a supine position and monitors were applied. SCDs were applied to her lower extremities and she was placed under general anesthesia and intubated without difficulty. The patient was the rotated onto her left side and anesthesia performed a erector spine block for postoperative comfort. Once the block was done the patient was placed back in a supine position and a Goode catheter was placed in a standard sterile fashion. Her abdomen was then prepped and draped in a sterile fashion using ChloraPrep. At this point a timeout was done and the patient's name, date of , procedure type, allergies to medications, metal in her body, antibiotic and DVT prophylaxis, were reviwed. Fire risk was assessed. At this point 1% Lidocaine was injected just above the umbilicus into the dermis and subcutaneous tissue. A 5 mm incision was made with an 11 blade. The skin next to the incision was grasped with penetrating towel clamps and while pulling up on the skin a 5 mm port was placed under direct visualization without difficulty. The abdomen was insuflated and then 3 more ports were placed. A 12 mm port was placed in the subxiphoid area and two 5 mm ports were placed in the right upper quadrant. The liver was inspected and looked slightly enlarged. Fatty infiltration was noted. The patient's bed was then turned to the left and her head was brought up. The gallbladder was grasped at the body and pushed towards the right shoulder, this allowed me to visualize the neck of the gallbladder. The neck was grasped and pulled towards the right flank and down allowing me to visualize the lymph node. Using a [place] dissector with cautery the lymph node was gently dissected away from the tissues. At this point I thought I saw the cystic duct and started to dissect around it but then noted that the neck of the Gallbladder was folded up and was attached to the body. I gently took down the scar tissue and found the cystic artery and placed 3 clips. One proximal and 2 distal and cut in between. I was then able to find the cystic duct which was slightly dilated at the junction with the gallbladder. The duct was dissected 360 degrees using the [place] dissector in order for me to visualize its entrance into the gallbladder. Liver was noted behind it. There were no other structures right behind. Critical view was achieved. One clip was placed at the junction and a small cut was made just under the clip. A small stone was extracted. A cholangiogram catheter was then placed into the cystic duct and secured with a laparoscopic clamp. Saline was injected without difficulty and there was no leaking from the duct. Fluoroscopy was then done and I injected Omnipac mixed 50/50 with saline. Contrast was noted going into the common bile duct, up into the intra-hepatic billiary tree and into the duodenum. No filling defects were appreciated. The cholangio catheter was removed and 2 clips were placed on the cystic duct just under the cut I had made. Using the hook dissector the gallbladder was then dissected away from the liver bed and placed into an Endo Catch bag and pulled through the 12 mm port site. The 12 mm port was placed back into the abdomen under direct visualization. The liver bed was inspected no bleeding was noted. No bile leak was identified. The clipps were inspected and were all intact on the cystic duct and artery. A raytech was placed into the abdomen along the liver bed. The abdomen was then irrigated with a liter of normal saline until the effluent was clear. Once all the fluid was suctioned out The raytech was removed. There was no bile staining on the raytech. The rest of the local anesthetic mixture was then injected above the liver to help with postoperative right shoulder pain. The 12 mm and the 2 right upper quadrant ports were removed under direct visualization and no bleeding was noted from the fascia. The abdomen was deflated completely and lastly the umbilical port was removed. 10 cc of Exparel was then injected at the subxiphoid and umbilical port sites. The skin was cleaned and the incisions were closed with 4-0 Vicryl. The skin was dried and skin affix was applied over the closed incisions. Needle and sponge counts were correct at the end of the case. The Goode catheter was removed. At this point the patient was woken up, extubated and taken back to recovery in stable condition. There were no immediate complications and the patient tolerated the procedure well.
[2019-01-03] MEDS: Lidocaine 1% Multi-Dose 50 ML VIAL (16:23)
[2019-01-03] MEDS: Omnipaque 300 MG/ML 50 ML BTL (16:38)
[2019-01-03] MEDS: Lactated Ringers 1,000 ML 200 ML IV (16:55)
--- NOTE | 2019-01-03 16:59 | DI.RAD_ITS ---
SYMPTOM/DIAGNOSIS: CHOLECYSTITIS WITH CHOLELITHIASIS INTRAOPERATIVE CHOLANGIOGRAM: Fluoroscopy Time: 16.9 SEC Fluoroscopy was utilized by Dr. Barriga during the performance of an intraoperative cholangiogram. Please refer to the procedure report for complete details.
--- NOTE | 2019-01-03 17:07 | GB_PTH ---
PATIENT: Carola Dinh LOC: U#:[id number] AGE/SX: 58/F ROOM: RE01/03/[address]: Melissa Barriga MD : 1960 BED: A DIS: 01/04/2019 SPEC #: [id number] RECD: 01/04/19 12:27 STATUS: TONIA REQ #: [id number] BABAR: 01/03/19 17:[address]: Melissa Barriga DEPT: Surgical Specimen RECD BY: Katerina Shirley ENTERED: 01/04/19 12:28 SP TYPE: GB OTHR DR: Rajesh Daugherty Tissues: 1 - GALLBLADDER Procedures: GROSS AND MICRO LEVEL 3 Comments: [id number]
--- NOTE | 2019-01-03 17:51 | W.PM.DSUDISC ---
Discharge Plan Disposition Patient Disposition: HOME Condition: Stable Discharge Details Chief Complaint: Abd Prob Reason For Visit: acute cholecystitis Attending Provider: Melissa Barriga Primary Care Provider: Rajesh Daugherty ED Provider: Saurabh Reilly Home Meds and New Rx's Prescriptions: New ranitidine HCl [Acid Pants Maker (ranitidine)] 150 mg tablet 150 mg PO BID Qty: 60 RF: 1 Continued acetaminophen [Acetaminophen Extra Strength] 500 MG tablet 500 mg PO Q3H PRN Qty: 2 RF: 0 ibuprofen [Ibuprofen IB] 200 MG tablet 600 mg PO PRN RF: 0 ondansetron HCl [Zofran] 4 mg tablet 4 mg PO QID PRNRF: 0 hydrocodone-acetaminophen 5-325 mg tablet 1 tab PO Q6H PRN (Reason: pain) Qty: 20 RF: 0 Discharge Instructions Instructions: Laparoscopic Cholecystectomy (DC) Additional Instructions: Activity at Home after surgery: 1. Make sure you walk outside at least 4 times per day 2. You should be able to climb a flight of stairs 3. No driving while in pain or taking pain medications 4. No strenuous activity or heavy lifting for 2 weeks (laparoscopic surgery) Diet, Nutrition, & wound healin. Avoid alcohol until after you are recovered from your surgery 2. Make sure to eat plenty of lean protein (meat, fish, eggs, cottage cheese, beans) 3. Eat a variety of fruits and vegetables. Eat plenty of high fiber foods to avoid constipation. 4. Drink plenty of liquids to stay hydrated and avoid constipation Pain Medications: 1. Alternate Tylenol 650 mg every 6 hours as needed and alternate with Ibuprofen 600 mg every 6 hours 2. Take Hydrocodon/ APAP as Rx. Do not take extra Tylenol if you are taking hydrocodon Other: Ranitidine (acid rocket motor mechanic) 150 mg 2 x a day while taking ibuprofen to protect stomach For Constipation: 1. Take Milk of Magnesia or MiraLax as needed for constipation Other: 1. You may shower daily. Do not scrub the incisions 2. Do not soak the incisions for 1 week 3. You may alternate ice and heat as needed for pain and swelling Wound Care: 1. Keep the incisions clean and dry Please call our office if you develop: 1. Fevers >101.5 2. Nausea or Vomiting 3. Worsening pain 4. Redness and thick discharge from the wounds If after hours please call the Hospital at and ask to speak to the on-call surgeon Referrals: Melissa Barriga MD [ [facility] STAFF PHYSICIAN] - 01/19/19 10:30 am Activity:: Activity as Tolerated Diet:: low fat for 2 weeks DS: Diagnosis Discharge Diagnosis (1) Cholecystitis with cholelithiasis: Status: Acute (2) History of laparoscopic cholecystectomy: Status: Acute
[2019-01-03] MEDS: Pantoprazole 40 MG VIAL IVP (19:08)
[2019-01-03] MEDS: Ibuprofen 600 MG TAB PO (19:09)
[2019-01-03] MEDS: Normal Saline Flush 10 ML SYR IVP (19:14)
--- NOTE | 2019-01-03 19:50 | PGE_ITS ---
Date of Service Date of service: 01/03/19 Time of Service: 19:46 Assessment and Plan (1) History of laparoscopic cholecystectomy: Current visit: Yes Status: Acute A\\ S/P lap Malu Patient very sleepy and hasn't gotten out of bed yet and hasn't eaten Dont feel comfortable sending home P\\ Admitt for overnight D/C home tomorrow on same pain meds as before. Zantac has been send in to Pharmacy Subjective Interval history since last seen: Patient is very tired. Complains of some RUQ /flank pain but its tolerable. Feels to weak to try and get up and go home. Exam GI Inspection: incision (c/d/i) Palpation: soft and tender (mild pain. No guarding or rebound) Auscultation: normal bowel sounds Objective Objective Clinical Data: Abnormal lab results 01/03/19 01/03/19 01/03/19 Range/Units 07:05 07:05 07:05 Absolute Lymphocytes 0.27 L (1.2-3.4) k/cumm BUN 19 H (7-18) mg/dL Creatinine 1.37 H (0.55-1.02) mg/dL Glucose 129 H (70-100) mg/dL Total Bilirubin 3.7 H (0.2-1.0) mg/dL Conjugated Bilirubin (0.00-0.20) mg/dL AST 417 H (15-37) U/L ALT 970 H (12-78) U/L Alkaline Phosphatase 398 H (46-116) U/L Urine pH (5-8) Urine Protein (Negative) mg/dL Urine Blood (Negative) Urine Bilirubin (Negative) Urine Urobilinogen (Up TO 0.2) EU/dL Acetaminophen < 2 L (10-30) ug/mL 01/03/19 01/03/19 Range/Units 09:32 10:25 Absolute Lymphocytes (1.2-3.4) k/cumm BUN (7-18) mg/dL Creatinine (0.55-1.02) mg/dL Glucose (70-100) mg/dL Total Bilirubin (0.2-1.0) mg/dL Conjugated Bilirubin 2.87 H (0.00-0.20) mg/dL AST (15-37) U/L ALT (12-78) U/L Alkaline Phosphatase (46-116) U/L Urine pH 8.5 H (5-8) Urine Protein Trace H (Negative) mg/dL Urine Blood Trace-intact H (Negative) Urine Bilirubin Small H (Negative) Urine Urobilinogen 1.0 H (Up TO 0.2) EU/dL Acetaminophen (10-30) ug/mL Vital Signs Temperature 99.5 F 01/03/19 18:34 Temperature Source Temporal Artery Scan 01/03/19 06:29 Pulse 71 01/03/19 18:34 Pulse Rhythm Regular 01/03/19 18:34 Respiratory Rate 17 01/03/19 18:34 Respiratory Effort Non-Labored 01/03/19 18:34 Respiratory Depth Normal 01/03/19 18:34 Respiratory Pattern Normal 01/03/19 18:34 Blood Pressure 137/82 01/03/19 18:34 Blood Pressure Mean 82 01/03/19 15:01 Blood Pressure Position Sitting 01/03/19 06:29 Pulse Oximetry 95 01/03/19 18:34 Respiratory End-tidal CO2 33 01/03/19 18:06 Oxygen Delivery Method Room Air 01/03/19 18:34 Oxygen Flow Rate 0 01/03/19 18:34 Pain Level 4 01/03/19 19:09 Intake & Output 01/02/19 01/03/19 01/03/19 23:59 11:59 23:59 Intake Total 2100 Output Total 475 / 475 Balance 2100 1575 / 3676 Weight 193 lb 5.526 oz 193 lb 5.526 oz Intake: IV 2100 Oral 0 / 0 Output: Urine 450 / 450 Estimated Blood Loss 25 / 25 Other: Urine Color Yellow Light Niki Urine Appearance Clear Emesis Description None Laboratory Results WBC 5.49 k/cumm (4.4-10.8) 01/03/19 07:05 RBC 4.33 m/cumm (4.00-5.20) 01/03/19 07:05 Hgb 12.4 g/dL (12.0-15.5) 01/03/19 07:05 Hct 38.2 % (36.0-46.0) 01/03/19 07:05 MCV 88.2 fL (80-95) 01/03/19 07:05 MCH 28.6 pg (27.0-33.0) 01/03/19 07:05 MCHC 32.5 g/dL (32.0-36.0) 01/03/19 07:05 RDW 14.0 % (11.7-14.6) 01/03/19 07:05 Plt Count 355 x1000/uL (130-400) 01/03/19 07:05 MPV 9.9 fL (8.0-11.0) 01/03/19 07:05 Immature Gran % 1.1 01/03/19 07:05 Neutrophils % 80.7 01/03/19 07:05 Lymphocytes % 4.9 01/03/19 07:05 Monocytes % 5.8 01/03/19 07:05 Eosinophils % 6.6 01/03/19 07:05 Basophils % 0.9 01/03/19 07:05 Absolute Neutrophils 4.43 k/cumm (1.2-6.7) 01/03/19 07:05 Absolute Lymphocytes 0.27 k/cumm (1.2-3.4) L 01/03/19 07:05 Absolute Monocytes 0.32 k/cumm (0.11-0.7) 01/03/19 07:05 Absolute Eosinophils 0.36 k/cumm (0.0-0.7) 01/03/19 07:05 Absolute Basophils 0.05 k/cumm (0.0-0.2) 01/03/19 07:05 Sodium 136 mmol/L (136-145) 01/03/19 07:05 Potassium 3.9 mmol/L (3.5-5.1) 01/03/19 07:05 Chloride 101 mmol/L (98-107) 01/03/19 07:05 Carbon Dioxide 24.6 mmol/L (21.0-32.0) 01/03/19 07:05 Anion Gap 10.4 mmol/L (3-11) 01/03/19 07:05 BUN 19 mg/dL (7-18) H 01/03/19 07:05 Creatinine 1.37 mg/dL (0.55-1.02) H 01/03/19 07:05 Estimated GFR/1.73 m2 39.60 (mL/min/1.73m2) 01/03/19 07:05 Glucose 129 mg/dL (70-100) H 01/03/19 07:05 Calcium 9.7 mg/dL (8.5-10.1) 01/03/19 07:05 Magnesium 2.2 mg/dL (1.8-2.4) 01/03/19 07:05 Total Bilirubin 3.7 mg/dL (0.2-1.0) H 01/03/19 07:05 Conjugated Bilirubin 2.87 mg/dL (0.00-0.20) H 01/03/19 10:25 AST 417 U/L (15-37) H 01/03/19 07:05 ALT 970 U/L (12-78) H 01/03/19 07:05 Alkaline Phosphatase 398 U/L (46-116) H 01/03/19 07:05 Troponin I < 0.02 ng/mL (0.00-0.06) 01/03/19 07:05 Total Protein 8.1 g/dL (6.4-8.2) 01/03/19 07:05 Albumin 3.4 g/dL (3.4-5.0) 01/03/19 07:05 Lipase 149 U/L (73-393) 01/03/19 07:05 Urine Color Yellow (Yellow) 01/03/19 09:32 Urine Clarity Clear 01/03/19 09:32 Urine pH 8.5 (5-8) H 01/03/19 09:32 Ur Specific [place] 1.015 (1.005-1.025) 01/03/19 09:32 Urine Protein Trace mg/dL (Negative) H 01/03/19 09:32 Urine Ketones Negative mg/dL (Negative) 01/03/19 09:32 Urine Blood Trace-intact (Negative) H 01/03/19 09:32 Urine Nitrite Negative (Negative) 01/03/19 09:32 Urine Bilirubin Small (Negative) H 01/03/19 09:32 Urine Urobilinogen 1.0 EU/dL (Up TO 0.2) H 01/03/19 09:32 Ur Leukocyte Esterase Negative (Negative) 01/03/19 09:32 Urine RBC Not Applicable 01/03/19 09:32 Urine WBC Not Applicable 01/03/19 09:32 Ur Epithelial Cells Many HPF (Negative) 01/03/19 09:32 Urine Crystals Not Applicable 01/03/19 09:32 Urine Bacteria Not Applicable 01/03/19 09:32 Urine Mucus Not Applicable 01/03/19 09:32 Ur Culture Indicated? No/sq. contamination 01/03/19 09:32 Urine Glucose Negative mg/dL (Negative) 01/03/19 09:32 Acetaminophen < 2 ug/mL (10-30) L 01/03/19 07:05
[2019-01-04] MEDS: Ibuprofen 600 MG TAB PO ×3 (00:47→14:04)
[2019-01-04] MEDS: Normal Saline 1,000 ML 150 ML IV (00:48)
[2019-01-04 01:37] VITALS: BP 139/85; PULSE 73; RESP 17; TEMP 36.9; O2SAT 95
--- NOTE | 2019-01-04 01:47 | NUR.NOTE ---
Nursing Note: 01/03/19 1825H Admitted patient per stretcher from PACU to Med/Surg room 2011. S/p lap tree. Transferred safely in bed. VSS. Trochar incision sites x4 with skin adhesive exposed to air clean dry and intact. Right ankle cast noted from previous surgery. IVF of LR changed to NS @ 150 ml/hr changed to 75 ml/hr
--- NOTE | 2019-01-04 05:56 | PGE_ITS ---
Date of Service Date of service: 01/04/19 Time of Service: 05:55 Assessment and Plan (1) History of laparoscopic cholecystectomy: Current visit: Yes Status: Acute A\\ POD #1 s/p Lap Malu P\\ D/C home after breakfast Will have Trischa, our PA come and discharge No medications need to be called in. Follow up 01/19/19 at 10:30 Subjective Interval history since last seen: POD #1 s/p Lap. Malu Feels better then yesterday. HAd a good night. Has taken only tylenol once over night. Has eaten some toast and jello Exam GI Inspection: incision (c/d/i) Palpation: soft, no hepatosplenomegaly and nontender Objective Objective Clinical Data: Abnormal lab results 01/03/19 01/03/19 01/03/19 Range/Units 07:05 07:05 07:05 Absolute Lymphocytes 0.27 L (1.2-3.4) k/cumm BUN 19 H (7-18) mg/dL Creatinine 1.37 H (0.55-1.02) mg/dL Glucose 129 H (70-100) mg/dL Total Bilirubin 3.7 H (0.2-1.0) mg/dL Conjugated Bilirubin (0.00-0.20) mg/dL AST 417 H (15-37) U/L ALT 970 H (12-78) U/L Alkaline Phosphatase 398 H (46-116) U/L Urine pH (5-8) Urine Protein (Negative) mg/dL Urine Blood (Negative) Urine Bilirubin (Negative) Urine Urobilinogen (Up TO 0.2) EU/dL Acetaminophen < 2 L (10-30) ug/mL 01/03/19 01/03/19 Range/Units 09:32 10:25 Absolute Lymphocytes (1.2-3.4) k/cumm BUN (7-18) mg/dL Creatinine (0.55-1.02) mg/dL Glucose (70-100) mg/dL Total Bilirubin (0.2-1.0) mg/dL Conjugated Bilirubin 2.87 H (0.00-0.20) mg/dL AST (15-37) U/L ALT (12-78) U/L Alkaline Phosphatase (46-116) U/L Urine pH 8.5 H (5-8) Urine Protein Trace H (Negative) mg/dL Urine Blood Trace-intact H (Negative) Urine Bilirubin Small H (Negative) Urine Urobilinogen 1.0 H (Up TO 0.2) EU/dL Acetaminophen (10-30) ug/mL Vital Signs Temperature 98.4 F 01/04/19 01:37 Temperature Source Tympanic 01/04/19 01:37 Pulse 73 01/04/19 01:37 Pulse Rhythm Regular 01/04/19 05:36 Respiratory Rate 17 01/04/19 01:37 Respiratory Effort Non-Labored 01/04/19 05:36 Respiratory Depth Normal 01/04/19 05:36 Respiratory Pattern Normal 01/04/19 05:36 Blood Pressure 139/85 01/04/19 01:37 Blood Pressure Mean 82 01/03/19 15:01 Blood Pressure Position Sitting 01/03/19 06:29 Pulse Oximetry 95 01/04/19 01:37 Respiratory End-tidal CO2 33 01/03/19 18:06 Oxygen Delivery Method Room Air 01/04/19 01:37 Oxygen Flow Rate 0 01/04/19 01:37 Pain Level 2 01/04/19 01:47 Intake & Output 01/03/19 01/03/19 01/04/19 11:59 23:59 11:59 Intake Total 2100 1005 / 1005 Output Total 1025 / 1025 900 / 900 Balance 2100 1025 / 3126 105 / 105 Weight 193 lb 5.526 oz 193 lb 5.526 oz Intake: IV 2100 1005 / 1005 Oral 0 / 0 Output: Urine 1000 / 1000 900 / 900 Estimated Blood Loss 25 / 25 Other: Urine Color Yellow Yellow Straw Urine Appearance Clear Clear Emesis Description None Voiding Methods Toilet Toilet Laboratory Results WBC 5.49 k/cumm (4.4-10.8) 01/03/19 07:05 RBC 4.33 m/cumm (4.00-5.20) 01/03/19 07:05 Hgb 12.4 g/dL (12.0-15.5) 01/03/19 07:05 Hct 38.2 % (36.0-46.0) 01/03/19 07:05 MCV 88.2 fL (80-95) 01/03/19 07:05 MCH 28.6 pg (27.0-33.0) 01/03/19 07:05 MCHC 32.5 g/dL (32.0-36.0) 01/03/19 07:05 RDW 14.0 % (11.7-14.6) 01/03/19 07:05 Plt Count 355 x1000/uL (130-400) 01/03/19 07:05 MPV 9.9 fL (8.0-11.0) 01/03/19 07:05 Immature Gran % 1.1 01/03/19 07:05 Neutrophils % 80.7 01/03/19 07:05 Lymphocytes % 4.9 01/03/19 07:05 Monocytes % 5.8 01/03/19 07:05 Eosinophils % 6.6 01/03/19 07:05 Basophils % 0.9 01/03/19 07:05 Absolute Neutrophils 4.43 k/cumm (1.2-6.7) 01/03/19 07:05 Absolute Lymphocytes 0.27 k/cumm (1.2-3.4) L 01/03/19 07:05 Absolute Monocytes 0.32 k/cumm (0.11-0.7) 01/03/19 07:05 Absolute Eosinophils 0.36 k/cumm (0.0-0.7) 01/03/19 07:05 Absolute Basophils 0.05 k/cumm (0.0-0.2) 01/03/19 07:05 Sodium 136 mmol/L (136-145) 01/03/19 07:05 Potassium 3.9 mmol/L (3.5-5.1) 01/03/19 07:05 Chloride 101 mmol/L (98-107) 01/03/19 07:05 Carbon Dioxide 24.6 mmol/L (21.0-32.0) 01/03/19 07:05 Anion Gap 10.4 mmol/L (3-11) 01/03/19 07:05 BUN 19 mg/dL (7-18) H 01/03/19 07:05 Creatinine 1.37 mg/dL (0.55-1.02) H 01/03/19 07:05 Estimated GFR/1.73 m2 39.60 (mL/min/1.73m2) 01/03/19 07:05 Glucose 129 mg/dL (70-100) H 01/03/19 07:05 Calcium 9.7 mg/dL (8.5-10.1) 01/03/19 07:05 Magnesium 2.2 mg/dL (1.8-2.4) 01/03/19 07:05 Total Bilirubin 3.7 mg/dL (0.2-1.0) H 01/03/19 07:05 Conjugated Bilirubin 2.87 mg/dL (0.00-0.20) H 01/03/19 10:25 AST 417 U/L (15-37) H 01/03/19 07:05 ALT 970 U/L (12-78) H 01/03/19 07:05 Alkaline Phosphatase 398 U/L (46-116) H 01/03/19 07:05 Troponin I < 0.02 ng/mL (0.00-0.06) 01/03/19 07:05 Total Protein 8.1 g/dL (6.4-8.2) 01/03/19 07:05 Albumin 3.4 g/dL (3.4-5.0) 01/03/19 07:05 Lipase 149 U/L (73-393) 01/03/19 07:05 Urine Color Yellow (Yellow) 01/03/19 09:32 Urine Clarity Clear 01/03/19 09:32 Urine pH 8.5 (5-8) H 01/03/19 09:32 Ur Specific [place] 1.015 (1.005-1.025) 01/03/19 09:32 Urine Protein Trace mg/dL (Negative) H 01/03/19 09:32 Urine Ketones Negative mg/dL (Negative) 01/03/19 09:32 Urine Blood Trace-intact (Negative) H 01/03/19 09:32 Urine Nitrite Negative (Negative) 01/03/19 09:32 Urine Bilirubin Small (Negative) H 01/03/19 09:32 Urine Urobilinogen 1.0 EU/dL (Up TO 0.2) H 01/03/19 09:32 Ur Leukocyte Esterase Negative (Negative) 01/03/19 09:32 Urine RBC Not Applicable 01/03/19 09:32 Urine WBC Not Applicable 01/03/19 09:32 Ur Epithelial Cells Many HPF (Negative) 01/03/19 09:32 Urine Crystals Not Applicable 01/03/19 09:32 Urine Bacteria Not Applicable 01/03/19 09:32 Urine Mucus Not Applicable 01/03/19 09:32 Ur Culture Indicated? No/sq. contamination 01/03/19 09:32 Urine Glucose Negative mg/dL (Negative) 01/03/19 09:32 Acetaminophen < 2 ug/mL (10-30) L 01/03/19 07:05
[2019-01-04 07:05] VITALS: BP 135/79; PULSE 67; RESP 16; TEMP 37.3; O2SAT 97
[2019-01-04] MEDS: Normal Saline Flush 10 ML SYR IVP (07:37)
[2019-01-04] MEDS: Acetaminophen 325 MG TAB 650 MG PO (10:44)
[2019-01-04 13:32] VITALS: BP 131/83; PULSE 71; RESP 17; TEMP 37.3; O2SAT 97
[2019-01-04 15:00] VITALS: BP 141/70; PULSE 73; RESP 16; TEMP 36.9; O2SAT 97
--- NOTE | 2019-01-04 16:04 | DSE_ITS ---
DS: Diagnosis Discharge Diagnosis (1) History of laparoscopic cholecystectomy: Status: Acute Discharge Plan Disposition Patient Disposition: HOME Condition: Stable Discharge Details Reason For Visit: acute cholecystitis Admit Date/Time: 01/03/19 17:47 Admit Provider: Melissa Barriga Attending Provider: Melissa Barriga Primary Care Provider: Rajesh Daugherty Hospital Course Hospital Course: pt admitted for acute tree. She underwent lap chold yest and admitted post Op for nursing care/hydration/pain management. She broke her ankle a week ago. She is able to manage on crutches. She is tolerating a reg diet. pain control is good on orals. she has norco at home. and she can use ice and tyloenl adn ibuprofen. watch for constipation. She has Rx for stool softners at home I changed the dressing on her ankle as well. She has f/u appt w/ ortho and Dr. Barriga next week. The ankle is c/d/i. mid bruising and swelling Home Meds and New Rx's Prescriptions: New ranitidine HCl [Acid Columnist/Commentator (ranitidine)] 150 mg tablet 150 mg PO BID Qty: 60 RF: 1 Continued acetaminophen [Acetaminophen Extra Strength] 500 MG tablet 500 mg PO Q3H PRN Qty: 2 RF: 0 ibuprofen [Ibuprofen IB] 200 MG tablet 600 mg PO PRN RF: 0 ondansetron HCl [Zofran] 4 mg tablet 4 mg PO QID PRNRF: 0 hydrocodone-acetaminophen 5-325 mg tablet 1 tab PO Q6H PRN (Reason: pain) Qty: 20 RF: 0 Discharge Instructions Instructions: Laparoscopic Cholecystectomy (DC) Additional Instructions: Activity at Home after surgery: 1. Make sure you walk outside at least 4 times per day 2. You should be able to climb a flight of stairs 3. No driving while in pain or taking pain medications 4. No strenuous activity or heavy lifting for 2 weeks (laparoscopic surgery) Diet, Nutrition, & wound healin. Avoid alcohol until after you are recovered from your surgery 2. Make sure to eat plenty of lean protein (meat, fish, eggs, cottage cheese, beans) 3. Eat a variety of fruits and vegetables. Eat plenty of high fiber foods to avoid constipation. 4. Drink plenty of liquids to stay hydrated and avoid constipation Pain Medications: 1. Alternate Tylenol 650 mg every 6 hours as needed and alternate with Ibuprofen 600 mg every 6 hours 2. Take Hydrocodon/ APAP as Rx. Do not take extra Tylenol if you are taking hydrocodon Other: Ranitidine (acid level glass vial filler) 150 mg 2 x a day while taking ibuprofen to protect stomach For Constipation: 1. Take Milk of Magnesia or MiraLax as needed for constipation Other: 1. You may shower daily. Do not scrub the incisions 2. Do not soak the incisions for 1 week 3. You may alternate ice and heat as needed for pain and swelling Wound Care: 1. Keep the incisions clean and dry Please call our office if you develop: 1. Fevers >101.5 2. Nausea or Vomiting 3. Worsening pain 4. Redness and thick discharge from the wounds If after hours please call the Hospital at and ask to speak to the on-call surgeon Stand Alone Forms: Nursing Discharge Form Referrals: Melissa Barriga MD [ [facility] STAFF PHYSICIAN] - 01/19/19 10:30 am Activity:: non wt bearing RLE Equipment/Supplies:: No Equipment Needed Diet:: low fat for 2 weeks Discharge Orders Discharge Orders: Discharge Order (Routine); Ordered 01/04/19 Ordered By: Luz Moreno Exam Narrative Exam Narrative: see progress notes DS: Data Vitals/I&O Vitals and I&O: Vital Signs Temperature 37.3 C 01/04/19 13:32 Temperature Source Tympanic 01/04/19 13:32 Pulse 71 01/04/19 13:32 Pulse Rhythm Regular 01/04/19 09:34 Respiratory Rate 17 01/04/19 13:32 Respiratory Effort 01/04/19 09:34 Respiratory Depth Normal 01/04/19 09:34 Respiratory Pattern Normal 01/04/19 05:36 Blood Pressure 131/83 01/04/19 13:32 Blood Pressure Mean 82 01/03/19 15:01 Blood Pressure Position Sitting 01/03/19 06:29 Pulse Oximetry 97 01/04/19 13:32 Respiratory End-tidal CO2 33 01/03/19 18:06 Oxygen Delivery Method Room Air 01/04/19 13:32 Oxygen Flow Rate 0 01/04/19 13:32 Pain Level 4 01/04/19 14:04 Intake & Output 01/03/19 01/04/19 01/04/19 23:59 11:59 23:59 Intake Total 2049 1570 / 1570 Output Total 1025 / 1025 2250 / 2700 450 / 2700 Balance 1025 / 3126 -680 / -1130 -450 / -1130 Weight 87.7 kg Intake: IV 2049 1450 / 1450 Oral 0 / 0 120 / 120 Output: Urine 1000 / 1000 2250 / 2700 450 / 2700 Estimated Blood Loss Other: Urine Color Yellow Yellow Yellow Urine Appearance Clear Clear Clear Urine Odor Normal Emesis Description None Voiding Methods Toilet Toilet [facility] Medical History Cholecystitis with cholelithiasis (Acute) Surgical History History of laparoscopic cholecystectomy (Acute ~01/03/19) S/P ORIF (open reduction internal fixation) fracture (Acute) History of section (Chronic) History of hysterectomy (Chronic) H/O excision of mass (Inactive) Social History Smoking/Tobacco Use Status: Never Drug use: Never Substance use type: does not use Do you feel safe at home: Yes Do you feel safe in your relationship?: Yes
== END 2019-01-04 16:50 | disposition home or self-care (01) ==
LOC: ER 15:11 → DSU 15:18 → SUR 15:31 → MS 20:02
PROVIDERS: Emergency Medicine; Admitting Provider Surgery; Emergency Provider Emergency Medicine; PCP General Practice; Visit Provider Surgery
PROC: 0FT44ZZ Resection of Gallbladder, Percutaneous Endoscopic Approach (ICD-10-PCS; CPT 47563; principal; 2019-01-03 14:45)
DX: K80.12 Calculus of gallbladder with acute and chronic cholecystitis without obstruction (principal); S82.851D Displaced trimalleolar fracture of right lower leg, subsequent encounter for closed fracture with routine healing; X58.XXXD Exposure to other specified factors, subsequent encounter
CPT/HCPCS: 47563; 36415; 76942; 80053; 83690; 96361; 96365; 96375; 99239; 99285; NC; 74300; 76700; 80329; 81003; 81015; 82248; 83735; 84484; 85025; 88304; 99284; G0378; J0131; J1100; J2270; J2405; J2543; J3010; Q9967

== ENCOUNTER 2019-01-09 10:11 | Outpatient (CLI) | payer OTHER, SELFPAY ==
--- NOTE | 2019-01-09 09:54 | DI.RAD_ITS ---
SYMPTOM/DIAGNOSIS: F/U ORIF RIGHT ANKLE: The out of cast examination reveals no change in the status of the bimalleolar fracture fragments which are essentially in anatomical position. Orthopedic hardware in place.
== END 2019-01-09 10:31 ==
PROVIDERS: PCP General Practice; Visit Provider Orthopaedic Surgery
DX: S82.851A Displaced trimalleolar fracture of right lower leg, initial encounter for closed fracture (principal)
CPT/HCPCS: 73610

== ENCOUNTER 2019-02-06 15:00 | Outpatient (CLI) | payer OTHER, SELFPAY ==
--- NOTE | 2019-02-06 09:54 | DI.RAD_ITS ---
SYMPTOM/DIAGNOSIS: S/P ORIF RIGHT TRIMALLEOLAR FRACTURE RIGHT ANKLE: 02/06/19 Three views were obtained and show plate, screw and pin fixation of trimalleolar fracture fragments No gross interval change in alignment in comparison with examination of January 09. There appears to be further healing at the fracture sites.
== END 2019-02-06 15:20 ==
PROVIDERS: PCP General Practice; Visit Provider Physician Assistant
DX: S82.851D Displaced trimalleolar fracture of right lower leg, subsequent encounter for closed fracture with routine healing (principal)
CPT/HCPCS: 73610

== ENCOUNTER 2019-03-20 10:37 | Outpatient (CLI) | payer OTHER, SELFPAY ==
--- NOTE | 2019-03-20 10:28 | DI.RAD_ITS ---
SYMPTOM/DIAGNOSIS: F/U ORIF RIGHT ANKLE: Two views were obtained. The previously described plate and screw fixation of tibiofibular fracture again noted with no gross interval change in alignment in comparison with exam of February 06.
== END 2019-03-20 10:57 ==
PROVIDERS: Visit Provider Physician Assistant
DX: S82.851D Displaced trimalleolar fracture of right lower leg, subsequent encounter for closed fracture with routine healing (principal)
CPT/HCPCS: 73600; 73610

== ENCOUNTER 2023-08-21 15:48 | Inpatient (IN) | payer OTHER, SELFPAY ==
[2023-08-21] VITALS (31 sets, daily range): BP systolic 126–172; BP diastolic 44–90; PULSE 76–113; RESP 14–21; TEMP 36.7–37.5; O2SAT 94–98
--- NOTE | 2023-08-21 | DI.CT_ITS ---
Exam(s) CT ABDOMEN PELVIS W EXAM: CT ABDOMEN PELVIS W CLINICAL HISTORY: left sided abd pain. TECHNIQUE: Imaging Protocol: Axial computed tomography images with coronal and sagittal reformatted images were created and reviewed CONTRAST MATERIAL: Intravenous: Omnipaque 350 Contrast volume:100 ml Oral: / no COMPARISON: No exams were available for comparison FINDINGS: ABDOMEN and PELVIS: Lung Bases: No acute findings. Small hiatal hernia. Liver: Liver normal mildly enlarged. Moderate hepatic steatosis. No measurable mass. Gallbladder and biliary tract: Status post cholecystectomy. No radiodense calculus or dilation. Pancreas: Normal density. No abnormal calcifications or inflammatory process. No evidence of mass. Spleen: Normal. Kidneys: Normal size, contour and axis. No radiodense stones. No obstructive uropathy. No suspicious masses seen. Adrenal glands: No masses seen. Vasculature: Abdominal aorta non-dilated. Soft tissues: Unremarkable. Bladder: No gross wall thickening. No calculi.No focal mass. Bowel: Diverticulosis of the sigmoid. Marked surrounding stranding as well as multiple air bubbles c onsistent with perforated diverticulitis. No discrete drainable abscess. No obstruction. Appendix contains high-density material but is not dilated. No surrounding inflammation. Bones: Unremarkable for age. Reproductive organs: Status post hysterectomy. Lymph nodes: Unremarkable. IMPRESSION:: Perforated sigmoid diverticulitis. No drainable abscess. RADIATION DOSE DELIVERED: 1,159.3mGy.cm Total DLP DATA REPOSITORY: All CT scans at this facility are submitted to the National Radiology Data Registry (NRDR) Dose Index Registry (DIR) with the [employer] ([employer]). RADIATION OPTIMIZATION: All CT scans at this facility use at least one of these dose optimization te chniques: automated exposure control; mA and/or kV adjustment per patient size (includes targeted exa ms where dose is matched to clinical indication); or iterative reconstruction.
[2023-08-21] MEDS: Normal Saline 1,000 ML 1000 ML IV (16:12)
[2023-08-21] MEDS: Ondansetron 4 MG/2 ML VIAL IVP (16:13)
[2023-08-21 16:20] LABS: Abs Immature Grans 0.04 10^3/uL (0.0-0.06); Absolute Basophil Count 0.06 10^3/uL (0.0-0.2); Absolute Eosinophil Count 0.03 10^3/uL (0.0-0.7); Absolute Lymphocyte Count 1.14 10^3/uL (1.2-3.4); Absolute Monocyte Count 0.89 10^3/uL (0.1-0.8); Absolute Neutrophil Count 8.83 10^3/uL (1.2-6.7); Basophils % 0.5; Eosinophils % 0.3; HGB 12.3 g/dL (11.2-15.7); Immature Grans % 0.4; Lymphocytes % 10.4; MCH 28.4 pg (27.0-33.0); MCHC 32.4 % (32.0-36.0); MCV 88 fL (80-95); MPV 10.1 fL (8.0-11.0); Monocytes % 8.1; Neutrophils % 80.3; Platelet Count 352 10^3/uL (130-400); RBC 4.33 10^6/uL (3.93-5.22); RDW 12.9 % (11.7-14.6); RDW-SD 41.6 fL
--- NOTE | 2023-08-21 16:24 | W.ED.GENAD ---
HPI <Chivo Clifford NP - Last Filed: 08/21/23 19:06> General Mode of arrival: ambulatory. Date/Time Provider Initiated Documentation: 08/21/23 15:48. Limitations to Documentation: no limitations. Information obtained by: patient. HPI Narrative: 3 week history of left sided abdominal pain, subjective intermittent fevers, nausea and vomiting at beginning of symptoms but resolved. similar history with constipation so tried miralax and now having some loose stooling, no blood. no history of colonoscopy. takes pepcid ac for GERD symptoms. also reports dry cough last 5 days, no shortness of breath Related Data Home Medications Medication Instructions Recorded Confirmed acetaminophen 500 mg tablet 500 mg PO Q3H PRN #2 tab-caps 04/25/13 06/26/19 (Acetaminophen Extra Strength) ibuprofen 200 mg tablet (Ibuprofen 600 mg PO PRN 04/25/13 06/26/19 IB) Allergies Allergy/AdvReac Type Severity Reaction Status Date / Time cefazolin AdvReac Unknown Nausea Verified 08/21/23 15:54 General Stated Complaint: Abd Prob FRANCISCA: 3 Review of Systems <Chivo Clifford NP - Last Filed: 08/21/23 19:06> All systems reviewed & are unremarkable except as noted in HPI and below Exam <Chivo Clifford NP - Last Filed: 08/21/23 19:06> Narrative Exam Narrative: Obese female of stated age in no acute distress mildly ill-appearing skin is pink warm dry well-perfused head is atraumatic eyes noninjected nonicteric neck supple full range of motion with no JVD cardiovascular regular rate and rhythm respirations are even and unlabored breath sounds are clear abdomen is soft round positive hypoactive bowel sounds no guarding no rebound tenderness reporting tenderness on the left mid abdomen moves all extremities equally without edema neuro she is awake alert oriented no focal deficits Course <SEAN Mercado Last Filed: 08/21/23 19:06> Vital Signs Vital signs: Vital Signs Temperature 37.5 C 08/21/23 15:51 Pulse 113 H 08/21/23 15:51 Respiratory Rate 18 08/21/23 15:51 Blood Pressure 172/85 H 08/21/23 15:51 Pulse Oximetry 94 08/21/23 15:51 Temperature 37.5 C 08/21/23 15:51 Temperature Source Temporal Artery Scan 01/21/24 15:51 Pulse 90 08/21/23 16:18 Respiratory Rate 17 08/21/23 16:18 Respiratory Effort Normal, Non-Labored 08/21/23 16:18 Blood Pressure 142/80 H 08/21/23 16:18 Blood Pressure Position Sitting 08/21/23 16:18 Pulse Oximetry 97 08/21/23 16:18 Oxygen Delivery Method Room Air 08/21/23 16:18 Oxygen Flow Rate 0 08/21/23 15:51 Pain Level 6 08/21/23 16:18 Lab/Test Results Lab/Test Results: Laboratory Tests Range/Units 08/21/23 16:14 WBC (4.4-10.8) 10^3/uL 11.00 H RBC (3.93-5.22) 10^6/uL 4.33 Hgb (11.2-15.7) g/dL 12.3 Hct (36.0-46.0) % 38.0 MCV (80-95) fL 88 MCH (27.0-33.0) pg 28.4 MCHC (32.0-36.0) % 32.4 RDW (11.7-14.6) % 12.9 Plt Count (130-400) 10^3/uL 352 MPV (8.0-11.0) fL 10.1 Immature Gran % 0.4 Neutrophils % 80.3 Lymphocytes % 10.4 Monocytes % 8.1 Eosinophils % 0.3 Basophils % 0.5 Nucleated RBC % (0.0-0.3) % 0.0 Absolute Neutrophils (1.2-6.7) 10^3/uL 8.83 H Absolute Lymphocytes (1.2-3.4) 10^3/uL 1.14 L Absolute Monocytes (0.1-0.8) 10^3/uL 0.89 H Absolute Eosinophils (0.0-0.7) 10^3/uL 0.03 Absolute Basophils (0.0-0.2) 10^3/uL 0.06 Medical Decision Making <Chivo Clifford NP - Last Filed: 08/21/23 19:06> Presents with a 3-week history of left lower quadrant pain and intermittent subjective fever. Tried bowel management with no improvement in symptoms. High suspicion for diverticulitis doubt perforation. Other differentials include colitis, gastroenteritis, kidney infection/stone. will establish IV, given 1 liter of NS, zofran 4 mg IVP. will check routine abd labs and ua and CT scan with IV contrast. CT results called by vrad. patient started on zosyn 3.375 mg IVPB and surgical consultation placed. Dr Moreno in for evaluation. report and care of patient handed off for ICU admission Medical Records Medical records reviewed: Yes I reviewed the patient's medical records. Imaging Data Radiologic Study: Imaging: CT Scan Radiologist's impression: Exam(s) Addendum created by Ifeanyi Cuellar MD on 08/21/2023 5:23:54 PM EST: THIS REPORT CONTAINS FINDINGS THAT MAY BE CRITICAL TO PATIENT CARE. The findings were verbally communicated via telephone conference with CHIVO CLIFFORD at 5:23 PM EST on 08/21/2023. The findings were acknowledged and understood. Initial report created on 08/21/2023 5:22:04 PM EST: PROCEDURE INFORMATION: Exam: CT Abdomen And Pelvis With Contrast Exam date and time: 08/21/2023 4:56 PM Age: 62 years old Clinical indication: Other: Left sided abd pain TECHNIQUE: Imaging protocol: Computed tomography of the abdomen and pelvis with contrast. Contrast material: 350 OMNI; Contrast volume: 100 ml; Contrast route: INTRAVENOUS (IV); COMPARISON: OT XR cholangiogram operative 01/03/2019 4:22 PM FINDINGS: Diaphragm: There hiatus hernia. Liver: Normal. No mass. Gallbladder and bile ducts: Post cholecystectomy with no biliary dilatation. Pancreas: Normal. No ductal dilation. Spleen: Normal. No splenomegaly. Adrenal glands: Normal. No mass. Kidneys and ureters: Normal. No hydronephrosis. Stomach and bowel: There is diverticulosis of the sigmoid colon with surrounding fat stranding and free air consistent with perforated diverticulitis. Appendix: There is an appendicolith but no changes of acute appendicitis. Intraperitoneal space: See Stomach and bowel finding. Vasculature: There are aortic atheromatous calcifications. Lymph nodes: Unremarkable. No enlarged lymph nodes. Urinary bladder: Unremarkable as visualized. Reproductive: Unremarkable as visualized. Bones/joints: There is mild degenerative of the left hip joint. Soft tissues: There is a fat containing umbilical hernia. IMPRESSION: Perforated diverticulitis of the sigmoid colon. No well-defined collections. Dictated and Authenticated by: Ifeanyi Cuellar MD. Ordering:ALDO Sanderson MD Lab Data Lab results reviewed: Yes I reviewed the patient's lab results. Labs: Laboratory Tests Range/Units 08/21/23 08/21/23 16:14 16:36 WBC (4.4-10.8) 10^3/uL 11.00 H RBC (3.93-5.22) 10^6/uL 4.33 Hgb (11.2-15.7) g/dL 12.3 Hct (36.0-46.0) % 38.0 MCV (80-95) fL 88 MCH (27.0-33.0) pg 28.4 MCHC (32.0-36.0) % 32.4 RDW (11.7-14.6) % 12.9 Plt Count (130-400) 10^3/uL 352 MPV (8.0-11.0) fL 10.1 Immature Gran % 0.4 Neutrophils % 80.3 Lymphocytes % 10.4 Monocytes % 8.1 Eosinophils % 0.3 Basophils % 0.5 Nucleated RBC % (0.0-0.3) % 0.0 Absolute Neutrophils (1.2-6.7) 10^3/uL 8.83 H Absolute Lymphocytes (1.2-3.4) 10^3/uL 1.14 L Absolute Monocytes (0.1-0.8) 10^3/uL 0.89 H Absolute Eosinophils (0.0-0.7) 10^3/uL 0.03 Absolute Basophils (0.0-0.2) 10^3/uL 0.06 Sodium (136-145) mmol/L 134 L Potassium (3.5-5.1) mmol/L 3.9 Chloride (98-107) mmol/L 97 L Carbon Dioxide (21.0-32.0) mmol/L 23.9 Anion Gap (3-11) mmol/L 13.1 H BUN (7-18) mg/dL 11 Creatinine (0.55-1.02) mg/dL 1.3 H Est GFR (CKD-EPI 2020) (mL/min/1.73m2) 46.49 Glucose (74-106) mg/dL 127 H Calcium (8.5-10.1) mg/dL 9.5 Total Bilirubin (0.2-1.0) mg/dL 0.5 AST (15-37) U/L 34 ALT (14-59) U/L 39 Alkaline Phosphatase (46-116) U/L 111 Total Protein (6.4-8.2) g/dL 8.3 H Albumin (3.4-5.0) g/dL 3.4 Lipase (16-77) U/L 27 Urine Color (Yellow) Yellow Urine Clarity (Clear) Clear Urine pH (5-8) 7.0 Ur Specific [place] (1.005-1.025) 1.010 Urine Protein (Negative) mg/dL Negative Urine Ketones (Negative) mg/dL 15 H Urine Blood (Negative) Trace-lysed H Urine Nitrite (Negative) Negative Urine Bilirubin (Negative) Negative Urine Urobilinogen (Up to 0.2) mg/dL 0.2 Ur Leukocyte Esterase (Negative) Negative Urine RBC (0-2) HPF 0-2 Urine WBC (0-5) HPF Negative Ur Epithelial Cells (Negative) HPF Rare Urine Crystals (Negative) HPF Negative Urine Bacteria (Negative) HPF Negative Urine Casts (Negative) LPF Negative Urine Mucus (Negative) Negative Ur Culture Indicated? No Urine Glucose (Negative) mg/dL Negative Quality:SDOH Health Related Social Needs: No Data to Display <Abdulaziz Hoyt MD - Last Filed: 08/21/23 18:16> Date: 08/21/23 Time: 18:15 Note: Patient seen, examined, and discussed with SEAN Clifford. I agree with treatment plan as discussed/documented. PFSH <Chivo Clifford NP - Last Filed: 08/21/23 19:06> All Active Problems (Updated 08/21/23 @ 19:06 by Chivo Clifford NP) Family history of Crohn's disease (Acute) Upper respiratory infection with cough and congestion (Acute) Perforation of sigmoid colon due to diverticulitis (Acute) Hepatic steatosis (Acute) Medical History (Updated 08/21/23 @ 19:06 by Chivo Clifford NP) Cholecystitis with cholelithiasis Surgical History (Updated 08/21/23 @ 18:57 by Luz Moreno DO) History of laparoscopic cholecystectomy (~01/03/19) Closed right trimalleolar fracture (12/24/18) DOI: 12/24/18 DOS: 12/26/18 S/P ORIF (open reduction internal fixation) fracture right ankle 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 29 years ago per pt. History of hysterectomy History of section Social History Smoking/Tobacco Use Status: Never Smoking risk assessment performed?: Yes Drug use: Never Substance use type: does not use Housing: house Do you feel safe at home: Yes Do you feel safe in your relationship?: Yes Discharge Plan Disposition Patient Disposition: Admit to [facility] Condition: Stable Discharge Details Chief Complaint: Abd Prob Clinical Impression: Perforation of sigmoid colon due to diverticulitis Primary Care Provider: Unknown,Unknown ED Provider: Chivo Clifford [place] Meds and New Rx's Prescriptions: No Action acetaminophen [Acetaminophen Extra Strength] 500 MG tablet 500 mg PO Q3H PRN Qty: 2 ibuprofen [Ibuprofen IB] 200 MG tablet 600 mg PO PRN
[2023-08-21 16:41] LABS: Bilirubin Negative (Negative); Blood Trace-lysed (Negative); Clarity Clear (Clear); Glucose Negative (Negative); Ketones 15 mg/dL (Negative); Leukocyte Esterase Negative (Negative); Nitrite Negative (Negative); Urobilinogen 0.2 mg/dL (Up to 0.2)
[2023-08-21 16:46] LABS: ALT 39 U/L (14-59); AST 34 U/L (15-37); Albumin 3.4 g/dL (3.4-5.0); Alkaline Phosphatase 111 U/L (46-116); Anion Gap 13.1 mmol/L (3-11); BUN 11 mg/dL (7-18); Bilirubin, Total 0.5 mg/dL (0.2-1.0); CO2 23.9 mmol/L (21.0-32.0); CREATININE 1.3 mg/dL (0.55-1.02); Calcium 9.5 mg/dL (8.5-10.1); Chloride 97 mmol/L (98-107); Estimated GFR 46.49 (mL/min/1.73m2); Glucose 127 mg/dL (74-106); Lipase 27 U/L (16-77); Potassium 3.9 mmol/L (3.5-5.1); Sodium 134 mmol/L (136-145); Total Protein 8.3 g/dL (6.4-8.2)
[2023-08-21 16:47] LABS: RBC 0-2 HPF (0-2); WBC Negative HPF (0-5)
[2023-08-21 16:48] LABS: Bacteria Negative HPF (Negative); C & S Indicated? No; Casts Negative LPF (Negative); Crystals Negative HPF (Negative); Epithelial Cells Rare HPF (Negative); Mucus Negative (Negative)
[2023-08-21] MEDS: Normal Saline - Diluent 50 ML VIAL IJ (16:56)
[2023-08-21] MEDS: Omnipaque 350 MG/ML 100 ML BTL IJ (16:57)
--- NOTE | 2023-08-21 17:22 | DI.VRAD_ITS ---
Addendum created by Ifeanyi Cuellar MD on 08/21/2023 5:23:54 PM EST: THIS REPORT CONTAINS FINDINGS THAT MAY BE CRITICAL TO PATIENT CARE. The findings were verbally communicated via telephone conference with CHIVO DIGGS at 5:23 PM EST on 08/21/2023. The findings were acknowledged and understood. Initial report created on 08/21/2023 5:22:04 PM EST: PROCEDURE INFORMATION: Exam: CT Abdomen And Pelvis With Contrast Exam date and time: 08/21/2023 4:56 PM Age: 62 years old Clinical indication: Other: Left sided abd pain TECHNIQUE: Imaging protocol: Computed tomography of the abdomen and pelvis with contrast. Contrast material: 350 OMNI; Contrast volume: 100 ml; Contrast route: INTRAVENOUS (IV); COMPARISON: OT XR cholangiogram operative 01/03/2019 4:22 PM FINDINGS: Diaphragm: There hiatus hernia. Liver: Normal. No mass. Gallbladder and bile ducts: Post cholecystectomy with no biliary dilatation. Pancreas: Normal. No ductal dilation. Spleen: Normal. No splenomegaly. Adrenal glands: Normal. No mass. Kidneys and ureters: Normal. No hydronephrosis. Stomach and bowel: There is diverticulosis of the sigmoid colon with surrounding fat stranding and free air consistent with perforated diverticulitis. Appendix: There is an appendicolith but no changes of acute appendicitis. Intraperitoneal space: See Stomach and bowel finding. Vasculature: There are aortic atheromatous calcifications. Lymph nodes: Unremarkable. No enlarged lymph nodes. Urinary bladder: Unremarkable as visualized. Reproductive: Unremarkable as visualized. Bones/joints: There is mild degenerative of the left hip joint. Soft tissues: There is a fat containing umbilical hernia. IMPRESSION: Perforated diverticulitis of the sigmoid colon. No well-defined collections. Dictated and Authenticated by: Ifeanyi Cuellar MD. Ordering:ALDO Sanderson MD
[2023-08-21] MEDS: PIPERACILLIN/TAZO 3.375 GM in Normal Saline 50 ML IVPB (17:41)
--- NOTE | 2023-08-21 18:55 | W.PM.HP.N ---
Date of service: 08/21/23 Time of Service: 18:56 Assessment and Plan Assessment and plan (1) Perforation of sigmoid colon due to diverticulitis: Status: Acute Assessment and plan: - Currently patient has mild left lower quadrant pain with no peritoneal signs. We will plan ICU admission and IV antibiotics at this time. Will continue to monitor for any signs of clinical deterioration and sepsis. We did discuss that if her condition deteriorates she will need exploratory surgery with possible sigmoid colectomy and colostomy. Even if we are able to treat this episode with antibiotics she is at high risk for potential rebound infection, as well and is developing an abscess which may or may not require Percutaneous drainage versus surgery. Patient is mildly overweight, she is not a smoker she is not a diabetic. She will eventually require colonoscopy. All questions are answered to her satisfaction's arrangements are being made for admission This document was created with voice activated software and may contain errors. 60 mins spent with the patient today. (2) Upper respiratory infection with cough and congestion: Status: Acute Assessment and plan: -Covid is pd. Pt denies exposure. (3) Hepatic steatosis: Status: Acute (4) Family history of Crohn's disease: Status: Acute (5) Aortic atherosclerosis: Status: Acute (6) Umbilical hernia: Status: Acute History of Present Illness Narrative: Patient is a 62-year-old female who presented to the ER today complaining of abdominal pain. Patient has had left lower quadrant abdominal pain off and on for the past 3 weeks. She had some nausea today but no vomiting. She has not eaten anything today. She states that she is hungry. She has been obstipated. She thought she was constipated and took some MiraLAX. She did have a bowel movement today that was loose and without blood. She does currently have a cold. She has a cough which is nonproductive. She has had no fever or chills. She has nasal congestion. She denies sore throat. S he has never had a colonoscopy. She has never been told she had diverticula in the past. She does have a family history of Crohn's-and her daughter. There is no other family history of Crohn's that she is aware of. She has had multiple abdominal surgeries in the past including: , open hysterectomy, and a lap tree. She states she has a hard time waking up from anesthesia. She is allergic to cefazolin which causes nausea and hives. She denies any history of heart attack or stroke. She denies any history of hypertension. She denies any history of asthma or emphysema. She is not a smoker. She is not diabetic. She denies any history of liver or kidney disease. She does have a history of steatotosis. Review of Systems All systems reviewed & are unremarkable except as noted in HPI and below PFSH All Active Problems (Updated 08/21/23 @ 19:19 by Luz Moreno DO) Umbilical hernia (Acute) Aortic atherosclerosis (Acute) Family history of Crohn's disease (Acute) Upper respiratory infection with cough and congestion (Acute) Perforation of sigmoid colon due to diverticulitis (Acute) Hepatic steatosis (Acute) Medical History (Updated 08/21/23 @ 19:19 by Luz Moreno DO) Cholecystitis with cholelithiasis Surgical History (Updated 08/21/23 @ 18:57 by Luz Moreno DO) History of laparoscopic cholecystectomy (~01/03/19) Closed right trimalleolar fracture (12/24/18) DOI: 12/24/18 DOS: 12/26/18 S/P ORIF (open reduction internal fixation) fracture right ankle 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 29 years ago per pt. History of hysterectomy History of section Social History Smoking/Tobacco Use Status: Never Smoking risk assessment performed?: Yes Drug use: Never Substance use type: does not use Housing: house Do you feel safe at home: Yes Do you feel safe in your relationship?: Yes Meds Allergies and Home Medications Allergies Allergy/AdvReac Type Severity Reaction Status Date / Time cefazolin AdvReac Mild Nausea and Verified 08/21/23 19:07 hives Home Medications Medication Instructions Recorded Confirmed Type acetaminophen 500 mg tablet 500 mg PO Q3H PRN #2 tab-caps 04/25/13 06/26/19 History (Acetaminophen Extra Strength) ibuprofen 200 mg tablet (Ibuprofen 600 mg PO PRN 04/25/13 06/26/19 History IB) Exam Const General: cooperative, healthy appearing and comfortable Nutritional Appearance: overweight Orientation: alert, awake and oriented x3 Other: PHYSICAL EXAM GENERAL APPEARANCE: Alert, healthy appearance, oriented, x 3,? in no acute distress HEAD, EYES, EARS, NECK, THROAT: Head is normocephalic, pupils equal, round, reactive to light and accommodation, ocular movement intact, sclera clear and no jaundice. ?Dentition intact. no sore throat. +nasal congestion. no fevers. no productive cough LUNGS: normal respiration/normal chest excursion. ?Clear to auscultation bilaterally. ?No wheeze. ?HEART: Regular rate and rhythm. no murmurs EXTREMITY: No edema ABDOMEN: soft and non-tender to palpation.? Normal bowel sounds.? dmsll umbilical hernias.? minimal pain in LLQ. no rebound or guarding denies back pain. Results Labs 08/21/23 16:14 08/21/23 16:14 Labs: Laboratory Results - last 24 hr 08/21/23 08/21/23 16:14 16:36 WBC 11.00 H RBC 4.33 Hgb 12.3 Hct 38.0 MCV 88 MCH 28.4 MCHC 32.4 RDW 12.9 Plt Count 352 MPV 10.1 Immature Gran % 0.4 Neutrophils % 80.3 Lymphocytes % 10.4 Monocytes % 8.1 Eosinophils % 0.3 Basophils % 0.5 Nucleated RBC % 0.0 Absolute Neutrophils 8.83 H Absolute Lymphocytes 1.14 L Absolute Monocytes 0.89 H Absolute Eosinophils 0.03 Absolute Basophils 0.06 Sodium 134 L Potassium 3.9 Chloride 97 L Carbon Dioxide 23.9 Anion Gap 13.1 H BUN 11 Creatinine 1.3 H Est GFR (CKD-EPI 2020) 46.49 Glucose 127 H Calcium 9.5 Total Bilirubin 0.5 AST 34 ALT 39 Alkaline Phosphatase 111 Total Protein 8.3 H Albumin 3.4 Lipase 27 Urine Color Yellow Urine Clarity Clear Urine pH 7.0 Ur Specific [place] 1.010 Urine Protein Negative Urine Ketones 15 H Urine Blood Trace-lysed H Urine Nitrite Negative Urine Bilirubin Negative Urine Urobilinogen 0.2 Ur Leukocyte Esterase Negative Urine RBC 0-2 Urine WBC Negative Ur Epithelial Cells Rare Urine Crystals Negative Urine Bacteria Negative Urine Casts Negative Urine Mucus Negative Ur Culture Indicated? No Urine Glucose Negative Last Vital Signs Temp 36.8 C 08/21/23 17:47 Pulse 87 08/21/23 18:31 Resp 17 08/21/23 17:47 BP 149/71 H 08/21/23 18:31 Pulse Ox 95 01/21/24 17:47 Time Spent Time spent with Patient: 55-74 minutes Time was spent: preparing to see the patient(eg.review tests), obtaining and/or reviewing separately otained hiistory, ordering medications,tests, procedures, referring, communicating with other health child care centre manager, indepentently interpreting results, counseling the patient and care coordination
[2023-08-21 19:09] LABS: Source Nasopharynx
[2023-08-21 20:01] LABS: COVID-19 PCR POSITIVE (Negative)
--- NOTE | 2023-08-21 20:30 | DI.RAD_ITS ---
Exam(s) XR CHEST 2V PA LATERAL EXAM: XR CHEST 2V PA LATERAL CLINICAL HISTORY: covid positive TECHNIQUE: 2D digital imaging was performed. COMPARISON: No exams were available for comparison FINDINGS: HEART: Normal size. Aorta: Not dilated. PULMONARY VASCULATURE: Normal. LUNGS: Clear. PLEURAL SPACE: No pleural effusion or pneumothorax. BONE:Unremarkable for age. Soft tissues: Unremarkable. IMPRESSION: No acute abnormality. DATA REPOSITORY: RADIATION DOSE DELIVERED:
--- NOTE | 2023-08-21 20:42 | W.PC.ACHO ---
Registration Status: REG ER Primary Language: Preferred Language: ED Information & Data Chief Complaint Abd Prob 08/21/23 16:29 Triage Note Patient complaining of abd 08/21/23 15:51 pain for 3 weeks, off and on . Patient compaining of coughing started 4 days ago. Patient nauseous today Medical / Surgical History (Updated 08/21/23 @ 19:19 by Luz Moreno DO) Cholecystitis with cholelithiasis (Updated 08/21/23 @ 18:57 by Luz Moreno DO) History of laparoscopic cholecystectomy (~01/03/19) Closed right trimalleolar fracture (12/24/18) S/P ORIF (open reduction internal fixation) fracture H/O excision of mass History of hysterectomy History of section Most Recent Vital Signs Temperature 36.8 C 08/21/23 17:47 Temperature Source Temporal Artery Scan 08/21/23 17:47 Pulse 85 08/21/23 19:42 Respiratory Rate 18 08/21/23 19:42 Respiratory Effort Normal, Non-Labored 08/21/23 16:18 Blood Pressure 163/62 H 08/21/23 19:42 Blood Pressure Mean 101 08/21/23 19:00 Blood Pressure Position Sitting 08/21/23 16:18 Pulse Oximetry 95 08/21/23 19:42 Oxygen Delivery Method Room Air 08/21/23 19:42 Oxygen Flow Rate 0 08/21/23 19:42 Pain Level 6 08/21/23 16:18 Allergies cefazolin Adverse Reaction (Mild, Verified 08/21/23 19:07) Nausea and hives Active Medications Generic Name Dose Route Start Last Admin Trade Name Wandy PRN Reason Stop Dose Admin Iohexol 100 ml 08/21/23 17:00 08/21/23 16:57 Omnipaque 350 Mg/Ml 100 Ml Btl IJ 09/20/23 23:59 100 ml DIRECTED JESUS Administration Sodium Chloride 50 ml 08/21/23 17:00 08/21/23 16:56 Normal Saline - Diluent 50 Ml Vial IJ 50 ml .FOR DI USE JESUS Administration IV IV Catheter Type [Right Peripheral IV Antecubital] IV Catheter Gauge [Right 20 Antecubital] Diet Orders Category Date Time Status Nothing Per Oral [DIET] Nutrition 08/22/23 Breakfast Ordered Diagnostics 08/21/23 08/21/23 08/21/23 Range/Units 19:06 16:36 16:14 WBC 11.00 H (4.4-10.8) 10^3/uL RBC 4.33 (3.93-5.22) 10^6/uL Hgb 12.3 (11.2-15.7) g/dL Hct 38.0 (36.0-46.0) % MCV 88 (80-95) fL MCH 28.4 (27.0-33.0) pg MCHC 32.4 (32.0-36.0) % RDW 12.9 (11.7-14.6) % Plt Count 352 (130-400) 10^3/uL MPV 10.1 (8.0-11.0) fL Immature Gran % 0.4 Neutrophils % 80.3 Lymphocytes % 10.4 Monocytes % 8.1 Eosinophils % 0.3 Basophils % 0.5 Nucleated RBC % 0.0 (0.0-0.3) % Absolute Neutrophils 8.83 H (1.2-6.7) 10^3/uL Absolute Lymphocytes 1.14 L (1.2-3.4) 10^3/uL Absolute Monocytes 0.89 H (0.1-0.8) 10^3/uL Absolute Eosinophils 0.03 (0.0-0.7) 10^3/uL Absolute Basophils 0.06 (0.0-0.2) 10^3/uL Sodium 134 L (136-145) mmol/L Potassium 3.9 (3.5-5.1) mmol/L Chloride 97 L (98-107) mmol/L Carbon Dioxide 23.9 (21.0-32.0) mmol/L Anion Gap 13.1 H (3-11) mmol/L BUN 11 (7-18) mg/dL Creatinine 1.3 H (0.55-1.02) mg/dL Est GFR (CKD-EPI 2020) 46.49 (mL/min/1.73m2) Glucose 127 H (74-106) mg/dL Calcium 9.5 (8.5-10.1) mg/dL Total Bilirubin 0.5 (0.2-1.0) mg/dL AST 34 (15-37) U/L ALT 39 (14-59) U/L Alkaline Phosphatase 111 (46-116) U/L Total Protein 8.3 H (6.4-8.2) g/dL Albumin 3.4 (3.4-5.0) g/dL Lipase 27 (16-77) U/L Urine Color Yellow (Yellow) Urine Clarity Clear (Clear) Urine pH 7.0 (5-8) Ur Specific [place] 1.010 (1.005-1.025) Urine Protein Negative (Negative) mg/dL Urine Ketones 15 H (Negative) mg/dL Urine Blood Trace-lysed H (Negative) Urine Nitrite Negative (Negative) Urine Bilirubin Negative (Negative) Urine Urobilinogen 0.2 (Up to 0.2) mg/dL Ur Leukocyte Esterase Negative (Negative) Urine RBC 0-2 (0-2) HPF Urine WBC Negative (0-5) HPF Ur Epithelial Cells Rare (Negative) HPF Urine Crystals Negative (Negative) HPF Urine Bacteria Negative (Negative) HPF Urine Casts Negative (Negative) LPF Urine Mucus Negative (Negative) Ur Culture Indicated? No Urine Glucose Negative (Negative) mg/dL COVID-19 Source Nasopharynx SARS-CoV-2 (PCR) POSITIVE A* (Negative) Intake and Output - 24 Hour Total 08/21/23 15:47 thru 08/21/23 18:40 Intake Total 50 Balance 50 Weight 85.729 kg Intake: IV 50 Falls Risk Assessment History of Falls No History 08/21/23 16:18 Contributing Factors No Factors 08/21/23 16:18 Ambulatory Aids Independent 08/21/23 16:18 Tubes/Lines With any additional score 08/21/23 16:18 Gait Evaluation No gait disturbance 08/21/23 16:18 Cognition No cognitive impairment 08/21/23 16:18 Fall Total Score 20 08/21/23 16:18 Level of Risk Standard/Low Risk 08/21/23 16:18 Problems (Updated 08/21/23 @ 19:19 by Luz Moreno DO) Umbilical hernia (Acute) Aortic atherosclerosis (Acute) Family history of Crohn's disease (Acute) Upper respiratory infection with cough and congestion (Acute) Perforation of sigmoid colon due to diverticulitis (Acute) Hepatic steatosis (Acute) v v v v v v v v v Sending and/or Receiving Nurses: Please use comment section below to note any information pertinent to the patient hand-off not included above. Information / Comments: Hx L side abd pain x3 weeks Intermittent fever. Cough x5 days, no SOB Perforated diverticulitis COVID Positive #20 RAC VSS Ambulatory Will get CXR on the way to ICU Dr. Moreno admitting Report received from: Patria Bailey
--- NOTE | 2023-08-21 21:15 | DI.VRAD_ITS ---
PROCEDURE INFORMATION: Exam: XR Chest Exam date and time: 08/21/2023 8:45 PM Age: 62 years old Clinical indication: Other: Covid positive TECHNIQUE: Imaging protocol: Radiologic exam of the chest. Views: 2 views. COMPARISON: CT ABDOMEN PELVIS W 08/21/2023 4:56 PM FINDINGS: Lungs: No consolidation. No Mass Pleural spaces: No pleural effusion. No pneumothorax. Heart/Mediastinum: Unremarkable Bones/joints: No significant abnormality IMPRESSION: No acute findings. Dictated and Authenticated by: Fabien Bolton MD. Ordering:ALDO Sanderson MD
[2023-08-21] MEDS: Famotidine 20 MG/2 ML VIAL IVP (22:00)
[2023-08-21] MEDS: Normal Saline Flush 10 ML SYR IVP ×2 (22:01)
[2023-08-21] MEDS: PIPERACILLIN/TAZO 4.5 GM in Normal Saline 100 ML IVPB (22:01)
[2023-08-22] VITALS (19 sets, daily range): BP systolic 125–143; BP diastolic 61–72; PULSE 69–82; RESP 14–21; TEMP 36.7–36.9; O2SAT 94–96
[2023-08-22] MEDS: POTASSIUM CHLORIDE/D5-0.9%NACL 1,000 ML 82 MEQ IV ×2 (00:09→12:25)
[2023-08-22] MEDS: Normal Saline Flush 10 ML SYR IVP ×3 (01:49→23:02)
[2023-08-22] MEDS: Normal Saline 500 ML 20 ML IV (02:01)
[2023-08-22] MEDS: PIPERACILLIN/TAZO 4.5 GM in Normal Saline 100 ML IVPB ×3 (05:08→22:35)
[2023-08-22 06:51] LABS: Abs Immature Grans 0.02 10^3/uL (0.0-0.06); Absolute Basophil Count 0.02 10^3/uL (0.0-0.2); Absolute Eosinophil Count 0.08 10^3/uL (0.0-0.7); Absolute Lymphocyte Count 1.48 10^3/uL (1.2-3.4); Absolute Monocyte Count 0.73 10^3/uL (0.1-0.8); Basophils % 0.3; Eosinophils % 1.4; HCT 33.2 % (36.0-46.0); HGB 10.9 g/dL (11.2-15.7); Immature Grans % 0.3; Lymphocytes % 25.4; MCH 29.1 pg (27.0-33.0); MCHC 32.8 % (32.0-36.0); MCV 89 fL (80-95); MPV 10.7 fL (8.0-11.0); Monocytes % 12.5; Neutrophils % 60.1; Platelet Count 282 10^3/uL (130-400); RBC 3.74 10^6/uL (3.93-5.22); RDW 13.1 % (11.7-14.6); RDW-SD 42.8 fL; WBC 5.83 10^3/uL (4.4-10.8)
[2023-08-22 07:13] LABS: Anion Gap 11.7 mmol/L (3-11); BUN 10 mg/dL (7-18); C-Reactive Protein 11.34 mg/dL (0.0-0.3); CO2 25.3 mmol/L (21.0-32.0); CREATININE 1.3 mg/dL (0.55-1.02); Calcium 8.8 mg/dL (8.5-10.1); Chloride 104 mmol/L (98-107); Estimated GFR 46.49 (mL/min/1.73m2); Glucose 118 mg/dL (74-106); Magnesium 2.3 mg/dL (1.8-2.4); Potassium 3.9 mmol/L (3.5-5.1); Sodium 141 mmol/L (136-145)
--- NOTE | 2023-08-22 09:59 | NUR.NOTE ---
Nursing Note: Confirmed Heparin dosing with pharmacy and MD r/t admitting dx. Benefits outweigh risks.
--- NOTE | 2023-08-22 16:00 | INITIAL_ITS ---
Date of service: 08/22/23 Time of Service: 16:00 Care Management Initial Assmt Initial Assessment REASON FOR HOSPITALIZATION:: Controlled Perforated Diverticulitis PREVIOUS FUNCTIONAL STATUS/SOCIAL/FAMILY SUPPORTS:: Resides in [place] with significant other, independent at baseline in the community. CURRENT FUNCTIONAL STATUS:: Carola remains inpatient, on COVID precautions. CM continues to follow. ADVANCE DIRECTIVES:: None on file. Has patient been provided with info about the portal/API?: No Did the patient sign up for the portal?: No CODE STATUS:: Full Code INSURANCE COVERAGE / FINANCIAL ISSUES:: [employer] POTENTIAL DISCHARGE NEEDS:: Follow up appointments. PATIENT/FAMILY EDUCATION NEEDS:: Review of discharge instructions, discuss Ask Me Three. ANTICIPATED BARRIERS TO DISCHARGE:: None identified. TRANSPORTATION:: Via private vehicle with significant other. PLAN:: Carola will return home when ready per MD. She will follow up with her PCP and plan of care as prescribed. No additional services anticipated at this time. PFSH All Active Problems (Updated 08/21/23 @ 21:21 by Luz Moreno DO) COVID (Acute) Umbilical hernia (Acute) Aortic atherosclerosis (Acute) Family history of Crohn's disease (Acute) Upper respiratory infection with cough and congestion (Acute) Perforation of sigmoid colon due to diverticulitis (Acute) Hepatic steatosis (Acute) Medical History (Updated 08/21/23 @ 21:21 by Luz Moreno DO) Cholecystitis with cholelithiasis Surgical History (Updated 08/21/23 @ 18:57 by Luz Moreno DO) History of laparoscopic cholecystectomy (~01/03/19) Closed right trimalleolar fracture (12/24/18) DOI: 12/24/18 DOS: 12/26/18 S/P ORIF (open reduction internal fixation) fracture right ankle 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 29 years ago per pt. History of hysterectomy History of section Social History Smoking/Tobacco Use Status: Never Smoking risk assessment performed?: Yes Drug use: Never Substance use type: does not use Housing: house Do you feel safe at home: Yes Do you feel safe in your relationship?: Yes SDOH(Care Management) Screening Will the Patient Participate in the Screening?: Declined to provide
--- NOTE | 2023-08-22 22:32 | W.PM.PROGNOT ---
Date of Service Date of service: 08/22/23 Time of Service: 22:33 Assessment and Plan Assessment and plan (1) Perforation of sigmoid colon due to diverticulitis: Status: Acute Assessment and plan: Although her CAT scan imaging is impressive for diverticulitis, her hemodynamics, and symptoms are very reassuring. I will repeat another CBC tomorrow. Assuming the white blood cell count stays normal, then we can work to advance her diet tomorrow, and perhaps switch her over to enteral antibiotics. Subjective Subjective Interval history since last seen: She is feeling much better today, and was able to tolerate some liquids. She is pain-free this evening. She denies any nausea or vomiting. Exam GI Other: Abdomen soft and nondistended. She has a little bit of tenderness in the left lower quadrant with deep palpation. Certainly no rebound or guarding. Objective Last Vital Signs Temp 98.1 F 08/22/23 16:06 Pulse 74 08/22/23 16:04 Resp 14 08/22/23 09:00 BP 137/69 08/22/23 16:04 Pulse Ox 96 08/22/23 05:30 Laboratory Results - last 24 hr 08/22/23 05:40 WBC 5.83 RBC 3.74 L Hgb 10.9 L Hct 33.2 L MCV 89 MCH 29.1 MCHC 32.8 RDW 13.1 Plt Count 282 MPV 10.7 Immature Gran % 0.3 Neutrophils % 60.1 Lymphocytes % 25.4 Monocytes % 12.5 Eosinophils % 1.4 Basophils % 0.3 Nucleated RBC % 0.0 Absolute Neutrophils 3.50 Absolute Lymphocytes 1.48 Absolute Monocytes 0.73 Absolute Eosinophils 0.08 Absolute Basophils 0.02 Sodium 141 Potassium 3.9 Chloride 104 Carbon Dioxide 25.3 Anion Gap 11.7 H BUN 10 Creatinine 1.3 H Est GFR (CKD-EPI 2020) 46.49 Glucose 118 H Calcium 8.8 Magnesium 2.3 C-Reactive Protein 11.34 H Time Spent with Patient Time Spent with Patient: 25-34 minutes Time was spent: preparing to see the patient(eg.review tests), ordering medications,tests, procedures, indepentently interpreting results and counseling the patient
[2023-08-22] MEDS: Famotidine 20 MG/2 ML VIAL IVP (22:34)
[2023-08-23 00:39] VITALS: BP 135/83; PULSE 74; RESP 16; TEMP 37; O2SAT 98
[2023-08-23] MEDS: POTASSIUM CHLORIDE/D5-0.9%NACL 1,000 ML 82 MEQ IV (02:00)
[2023-08-23] MEDS: PIPERACILLIN/TAZO 4.5 GM in Normal Saline 100 ML IVPB ×2 (05:48→15:09)
[2023-08-23 07:41] LABS: Abs Immature Grans 0.02 10^3/uL (0.0-0.06); Absolute Basophil Count 0.03 10^3/uL (0.0-0.2); Absolute Eosinophil Count 0.18 10^3/uL (0.0-0.7); Absolute Lymphocyte Count 1.72 10^3/uL (1.2-3.4); Absolute Monocyte Count 0.43 10^3/uL (0.1-0.8); Absolute Neutrophil Count 2.65 10^3/uL (1.2-6.7); Basophils % 0.6; Eosinophils % 3.6; HCT 30.6 % (36.0-46.0); HGB 9.7 g/dL (11.2-15.7); Immature Grans % 0.4; Lymphocytes % 34.2; MCH 28.4 pg (27.0-33.0); MCHC 31.7 % (32.0-36.0); MCV 90 fL (80-95); MPV 9.9 fL (8.0-11.0); Monocytes % 8.5; Neutrophils % 52.7; Platelet Count 317 10^3/uL (130-400); RBC 3.41 10^6/uL (3.93-5.22); RDW 13.1 % (11.7-14.6); RDW-SD 43.5 fL; WBC 5.03 10^3/uL (4.4-10.8)
[2023-08-23 08:04] LABS: Anion Gap 9.6 mmol/L (3-11); BUN 6 mg/dL (7-18); C-Reactive Protein 5.94 mg/dL (0.0-0.3); CO2 27.4 mmol/L (21.0-32.0); CREATININE 1.3 mg/dL (0.55-1.02); Calcium 9.3 mg/dL (8.5-10.1); Chloride 105 mmol/L (98-107); Estimated GFR 46.49 (mL/min/1.73m2); Glucose 118 mg/dL (74-106); Magnesium 2.3 mg/dL (1.8-2.4); Potassium 4.1 mmol/L (3.5-5.1); Sodium 142 mmol/L (136-145)
[2023-08-23 08:29] VITALS: BP 146/79; PULSE 61; RESP 18; TEMP 36.1; O2SAT 98
[2023-08-23] MEDS: Normal Saline Flush 10 ML SYR IVP ×3 (10:16→21:56)
--- NOTE | 2023-08-23 10:55 | CMPROGNOTE_ITS ---
Date of service: 08/23/23 Time of Service: 10:55 Care Management Progress Note Progress Note Text Progress Note Text: S/O: Remains on COVID precautions, CM following. A: 62 year old female admitted to [facility] 08/21/23 for controlled perforated diverticulitis. P: Carola continues to be closely monitored by surgery, CM continues to follow.
[2023-08-23 21:55] VITALS: BP 137/84; PULSE 68; RESP 16; TEMP 36.6; O2SAT 97
[2023-08-23] MEDS: Famotidine 20 MG/2 ML VIAL IVP (21:56)
[2023-08-24] MEDS: Amoxicillin 875/Clav. 125 TAB PO (06:23)
[2023-08-24 07:08] LABS: Abs Immature Grans 0.02 10^3/uL (0.0-0.06); Absolute Basophil Count 0.04 10^3/uL (0.0-0.2); Absolute Eosinophil Count 0.17 10^3/uL (0.0-0.7); Absolute Lymphocyte Count 1.37 10^3/uL (1.2-3.4); Absolute Monocyte Count 0.36 10^3/uL (0.1-0.8); Absolute Neutrophil Count 3.49 10^3/uL (1.2-6.7); Basophils % 0.7; Eosinophils % 3.1; HCT 36.2 % (36.0-46.0); HGB 11.7 g/dL (11.2-15.7); Immature Grans % 0.4; Lymphocytes % 25.1; MCH 28.5 pg (27.0-33.0); MCHC 32.3 % (32.0-36.0); MCV 88 fL (80-95); Monocytes % 6.6; Neutrophils % 64.1; Platelet Count 305 10^3/uL (130-400); RBC 4.11 10^6/uL (3.93-5.22); RDW 12.8 % (11.7-14.6); RDW-SD 41.7 fL; WBC 5.45 10^3/uL (4.4-10.8)
[2023-08-24 07:25] LABS: Anion Gap 13.7 mmol/L (3-11); BUN 9 mg/dL (7-18); C-Reactive Protein 3.42 mg/dL (0.0-0.3); CO2 24.3 mmol/L (21.0-32.0); CREATININE 1.4 mg/dL (0.55-1.02); Calcium 9.5 mg/dL (8.5-10.1); Chloride 104 mmol/L (98-107); Estimated GFR 42.54 (mL/min/1.73m2); Glucose 128 mg/dL (74-106); Magnesium 2.2 mg/dL (1.8-2.4); Potassium 3.5 mmol/L (3.5-5.1); Sodium 142 mmol/L (136-145)
[2023-08-24 08:38] VITALS: BP 133/84; PULSE 85; RESP 20; TEMP 36.8; O2SAT 96
--- NOTE | 2023-08-24 08:45 | W.PM.PROGNOT ---
Date of Service Date of service: 08/23/23 Time of Service: 15:40 Assessment and Plan Assessment and plan (1) Diverticulitis: Status: Chronic Assessment and plan: I will switch her over from the Zosyn to Augmentin tonight. Assuming her white blood cell count remains normal tomorrow, will discharge home with outpatient follow-up. Subjective Subjective Interval history since last seen: She feels great, and tolerated regular food without any change in her abdominal symptoms. White blood cell count remains normal, she has been afebrile. Exam GI Other: Her abdomen is soft and nondistended. She is not tender. Objective Last Vital Signs Temp 97.9 F 08/23/23 21:55 Pulse 68 08/23/23 21:55 Resp 16 08/23/23 21:55 BP 137/84 08/23/23 21:55 Pulse Ox 97 08/23/23 21:55 Laboratory Results - last 24 hr 08/24/23 06:50 WBC 5.45 RBC 4.11 Hgb 11.7 D Hct 36.2 MCV 88 MCH 28.5 MCHC 32.3 RDW 12.8 Plt Count 305 MPV 10.0 Immature Gran % 0.4 Neutrophils % 64.1 Lymphocytes % 25.1 Monocytes % 6.6 Eosinophils % 3.1 Basophils % 0.7 Nucleated RBC % 0.0 Absolute Neutrophils 3.49 Absolute Lymphocytes 1.37 Absolute Monocytes 0.36 Absolute Eosinophils 0.17 Absolute Basophils 0.04 Sodium 142 Potassium 3.5 Chloride 104 Carbon Dioxide 24.3 Anion Gap 13.7 H BUN 9 Creatinine 1.4 H Est GFR (CKD-EPI 2020) 42.54 Glucose 128 H Calcium 9.5 Magnesium 2.2 C-Reactive Protein 3.42 H Time Spent with Patient Time Spent with Patient: <25 minutes Time was spent: preparing to see the patient(eg.review tests) and counseling the patient
[2023-08-24] MEDS: Normal Saline Flush 10 ML SYR IVP (08:52)
--- NOTE | 2023-08-24 10:40 | W.PM.DS.N ---
Date of service: 08/24/23 Time of Service: 10:40 DS: Diagnosis Discharge Diagnosis (1) Diverticulitis: Status: Chronic Asessment and Plan: discharge verena with abx and outpatient follow up Discharge Plan Disposition Patient Disposition: Home Condition: Improving Discharge Details Reason For Visit: Controlled Perforated Diverticulitis Admit Date/Time: 08/21/23 19:08 Admit Provider: Joni Whyte Attending Provider: Joni Whyte Primary Care Provider: Unknown,Unknown Hospital Course Hospital Course: Carola is 62 years old and she come to the ED with abdominal pain. CT scan showed perforated diverticulitis, that appeared well contained. There was no abscess. She was started on antibiotics and diet was motified. Her symptoms resolved and she was advanced back to a normal diet, which was well tolerated. She was discharged home with an outpatient follow up plan. Home Meds and New Rx's Prescriptions: New amoxicillin-pot clavulanate 875-125 mg tablet 1 tab PO BID Qty: 14 0RF Rx Instructions: Take one tablet in the morning and one tablet in the evening No Action ibuprofen [Ibuprofen IB] 200 MG tablet 600 mg PO PRN Discharge Instructions Instructions: Diverticulitis (DC), Diverticulitis Diet (DC) Additional Instructions: Carola, I am so happy that you are recovering from the diverticulitis. I have provided a prescription for 7 more days of antibiotics like we discussed before you left. I encourage you to use this with daily yogurt, or other fermented foods such as sauerkraut, kimchi, or a lactobacillus pill or powder that can be purchased at most health food stores of pharmacies. You should be feeling a little better and a little stronger each day. If you notice the pain coming back, please let our offic now as soon as possible. Otherwise, we look forward to seeing you on September 14 at 10 AM. Activity:: Activity as Tolerated Equipment/Supplies:: No Equipment Needed Diet:: Diverticulitis diet Discharge Orders Discharge Orders: Discharge Order (Routine); Ordered 08/24/23 Ordered By: Joni Whyte DS: Summary Time Spent with Patient providing and/or coordinating discharge services: Less than 30 minutes Status at Discharge Functional status at discharge: independent ambulation Overall status at discharge: patient is back to baseline Mental Status: mental status grossly normal Speech and Movement: speech and movement normal Mood: congruent mood Affect: normal affect Quality:SDOH Health Related Social Needs: No Data to Display Exam GI Other: Abdomen is soft and non-tender Psych Mental Status: mental status grossly normal Speech and Movement: speech and movement normal Mood: congruent mood Affect: normal affect DS: Data Vitals/I&O Vitals and I&O: Vital Signs Temperature 98.2 F 08/24/23 08:38 Temperature Source Tympanic 08/24/23 08:38 Pulse 85 08/24/23 08:38 Pulse Rhythm Regular 08/23/23 21:55 Pulse 69 08/22/23 20:00 Respiratory Rate 20 08/24/23 08:38 Respiratory Effort Normal, Non-Labored 08/23/23 21:55 Respiratory Depth Normal 08/23/23 21:55 Respiratory Pattern Normal 08/23/23 21:55 Blood Pressure 133/84 08/24/23 08:38 Blood Pressure Mean 95 08/22/23 08:03 Blood Pressure Position Supine 08/22/23 04:00 Pulse Oximetry 96 08/24/23 08:38 Oxygen Delivery Method Room Air 08/24/23 08:38 Oxygen Flow Rate 0 08/24/23 08:38 Pain Level 0 08/24/23 08:38 Comment pain stomach grumbling 08/23/23 08:29 Intake & Output 08/23/23 08/23/23 08/24/23 11:59 23:59 11:59 Intake Total 369.067 / 3643.944 3418.333 / 1872.400 240 / 240 Output Total 0 / 0 0 / 0 Balance 369.067 / 3065.726 6543.333 / 1872.400 240 / 240 Weight 190 lb Intake: IV 369.067 / 6092.390 8393.333 / 1632.400 Oral 240 / 240 240 / 240 Output: Urine 0 / 0 0 / 0 Stool 0 / 0 0 / 0 Other: Urine Appearance Clear Comment Pt voids independently, reports normal voiding Voiding Methods Toilet Data Completed and Pending Labs on day of discharge: Labs from last 24 hours 08/24/23 06:50 WBC 5.45 RBC 4.11 Hgb 11.7 D Hct 36.2 MCV 88 MCH 28.5 MCHC 32.3 RDW 12.8 Plt Count 305 MPV 10.0 Immature Gran % 0.4 Neutrophils % 64.1 Lymphocytes % 25.1 Monocytes % 6.6 Eosinophils % 3.1 Basophils % 0.7 Nucleated RBC % 0.0 Absolute Neutrophils 3.49 Absolute Lymphocytes 1.37 Absolute Monocytes 0.36 Absolute Eosinophils 0.17 Absolute Basophils 0.04 Sodium 142 Potassium 3.5 Chloride 104 Carbon Dioxide 24.3 Anion Gap 13.7 H BUN 9 Creatinine 1.4 H Est GFR (CKD-EPI 2020) 42.54 Glucose 128 H Calcium 9.5 Magnesium 2.2 C-Reactive Protein 3.42 H PFSH All Active Problems Diverticulitis (Chronic) COVID (Acute) Umbilical hernia (Acute) Aortic atherosclerosis (Acute) Family history of Crohn's disease (Acute) Upper respiratory infection with cough and congestion (Acute) Perforation of sigmoid colon due to diverticulitis (Acute) Hepatic steatosis (Acute) Medical History Cholecystitis with cholelithiasis Surgical History History of laparoscopic cholecystectomy (~01/03/19) Closed right trimalleolar fracture (12/24/18) DOI: 12/24/18 DOS: 12/26/18 S/P ORIF (open reduction internal fixation) fracture right ankle 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 29 years ago per pt. History of hysterectomy History of section Social History Smoking/Tobacco Use Status: Never Smoking risk assessment performed?: Yes Drug use: Never Substance use type: does not use Housing: house Do you feel safe at home: Yes Do you feel safe in your relationship?: Yes Time Spent with Patient Time Spent with Patient: <45 minutes Time was spent: indepentently interpreting results, counseling the patient and care coordination
--- NOTE | 2023-08-24 10:48 | PDOC.CMDIS ---
Date of service: 08/24/23 Time of Service: 10:49 LACE Index Scoring Tool Questions: Length of Stay (in days): 3 Was the patient admitted via the E.D.?: Yes E.D. Visits: 0 Answers: Total Score: 6 Risk of Readmission: Low Risk Care Management Discharge Plan Reason for Hospitalization: Controlled Perforated Diverticulitis Discharge Plan: Carola will return home via private vehicle with significant other when ready per MD. She will follow up with surgical services and her plan of care as prescribed. CM completed T-MD referral to [facility] per patient request. Patient/Family Education Needs: Review discharge instructions and discuss Ask Me Three [facility] Health Related Social Needs: No Data to Display
== END 2023-08-24 13:36 | disposition home or self-care (01) | DRG 391 ==
LOC: ER 19:06 → ICU 20:52 → MS 08-22 20:39
PROVIDERS: Surgery; Admitting Provider Surgery; Emergency Provider Nurse Practitioner Acute Care; Visit Provider Surgery
DX: K57.20 Diverticulitis of large intestine with perforation and abscess without bleeding (principal); U07.1 COVID-19; K76.0 Fatty (change of) liver, not elsewhere classified; I70.0 Atherosclerosis of aorta; K42.9 Umbilical hernia without obstruction or gangrene; Z83.79 Family history of other diseases of the digestive system
CPT/HCPCS: 36415; 80048; 80053; 83690; 87635; 96361; 96365; 96375; 99285; 71046; 74177; 81003; 81015; 83735; 85025; 86140; J1644; J2405; J2543; J3490

== ENCOUNTER → 2023-09-01 13:09 | Outpatient (CLI) | payer OTHER, SELFPAY ==
--- NOTE | 2023-09-01 12:30 | DI.CT_ITS ---
Exam(s) CT ABDOMEN PELVIS W EXAM: CT ABDOMEN PELVIS W CLINICAL HISTORY: abdominal pain, diverticulitis, K57.92. TECHNIQUE: Imaging Protocol: Axial computed tomography images with coronal and sagittal reformatted images were created and reviewed CONTRAST MATERIAL: Intravenous: Omnipaque-350 100cc Oral: Yes. Oral contrast was also administered for bowel opacification. In COMPARISON: CT CT ABDOMEN PELVIS W from 08/21/2023 FINDINGS: VISUALIZED LUNG BASES: No nodules nor pleural effusions evident. ABDOMEN: There is no ascites. LIVER: There are no focal hepatic lesions evident. No evidence of hepatic abscess nor gas within the intrahepatic portal venous system. GALLBLADDER/BILIARY: Gallbladder is again noted be surgically absent. CBD is not dilated. PANCREAS: No evidence of pancreatic mass nor dilatation of the pancreatic duct. SPLEEN: Spleen is not enlarged. No obvious intrasplenic lesions. Splenic and portal veins are paten t. ADRENALS: There are no significant adrenal masses. KIDNEYS:No cysts evident. No solid renal masses. No calculi nor hydronephrosis.. ABDOMINAL AORTA: Abdominal aorta is not enlarged. LYMPH NODES:There is no retroperitoneal nor paraaortic adenopathy. ABDOMINAL WALL: No evidence of significant anterior abdominal wall nor inguinal hernia. PELVIS: GI: No evidence of appendicitis.Again noted is phlegmonous change and free air within the pelvis, wit hout significant improvement when compared to 08/21/2023. This is presumably from acute diverticulit is although there does not appear to be prominent diverticular disease in the sigmoid. The amount of phlegmonous change and free air is approximately equal to the CT scan of 08/21/2023. There is no tr ue find abscess.Also no layering free fluid in the most dependent aspect of the pelvis. LYMPH NODES: There is no intrapelvic nor inguinal adenopathy. REPRODUCTIVE: Uterus is again noted be surgically absent. There are no abnormal adnexal masses. Ova sree are presumed to be surgically absent URINARY BLADDER: Unremarkable and with no evidence of intraluminal gas to suggest abnormal fistulous communication to the infectious process. Also no masses nor radiopaque calculi in the nondistended u rinary bladder lumen. OSSEOUS: No fractures and no significant osseous lesions. IMPRESSION: 1. Compared to the prior CT scan of 08/21/2023 there has been no significant improvement in the signi ficant phlegmonous changes and free air related to the sigmoid which is presumably from perforated di verticulitis of the sigmoid. 2. There is no gas within the portal venous system nor evidence of liver abscess. There is also no g as within the urinary bladder to suggest fistulous communication. 3. Again noted is evidence of previous hysterectomy and cholecystectomy. No evidence of bowel obstru ction. RADIATION DOSE DELIVERED: 1,194.27mGy.cm Total DLP DATA REPOSITORY: All CT scans at this facility are submitted to the National Radiology Data Registry (NRDR) Dose Index Registry (DIR) with the [employer] (ACR). RADIATION OPTIMIZATION: All CT scans at this facility use at least one of these dose optimization te chniques: automated exposure control; mA and/or kV adjustment per patient size (includes targeted exa ms where dose is matched to clinical indication); or iterative reconstruction.
[2023-09-01 13:49] LABS: HGB 11.1 g/dL (11.2-15.7); MCH 28.8 pg (27.0-33.0); MCHC 32.6 % (32.0-36.0); MCV 88 fL (80-95); MPV 9.8 fL (8.0-11.0); Platelet Count 328 10^3/uL (130-400); RBC 3.86 10^6/uL (3.93-5.22); RDW 13.3 % (11.7-14.6); RDW-SD 42.7 fL; WBC 6.79 10^3/uL (4.4-10.8)
[2023-09-01] MEDS: Barium Sulfate 2% W/V-Creamy Vanilla Smoothie 450 ML BTL 900 ML PO (13:50)
[2023-09-01 14:03] LABS: Anion Gap 8.2 mmol/L (3-11); BUN 17 mg/dL (7-18); CO2 27.8 mmol/L (21.0-32.0); CREATININE 1.2 mg/dL (0.55-1.02); Calcium 8.9 mg/dL (8.5-10.1); Chloride 105 mmol/L (98-107); Estimated GFR 51.18 (mL/min/1.73m2); Glucose 125 mg/dL (74-106); Potassium 3.4 mmol/L (3.5-5.1); Sodium 141 mmol/L (136-145)
[2023-09-01] MEDS: Omnipaque 350 MG/ML 100 ML BTL IJ (15:38)
[2023-09-01] MEDS: Normal Saline - Diluent 50 ML VIAL IJ (15:39)
== END ==
PROVIDERS: Visit Provider Surgery
DX: K57.92 Diverticulitis of intestine, part unspecified, without perforation or abscess without bleeding (principal)
CPT/HCPCS: 80048; 85027; 74177; J3490

== ENCOUNTER 2023-11-28 06:39 | Day surgery (SDC) | payer OTHER, SELFPAY ==
--- NOTE | 2023-11-27 15:15 | W.PM.DSUDISC ---
Date of service: 11/28/23 Time of Service: 08:44 Discharge Plan Disposition Patient Disposition: Home Condition: Good Discharge Details Reason For Visit: screening colonoscopy Attending Provider: Joni Whyte Primary Care Provider: Unknown,Unknown Home Meds and New Rx's Prescriptions: Continued ibuprofen [Ibuprofen IB] 200 MG tablet 600 mg PO PRN Discontinued polyethylene glycol 3350 17 gram/dose powder 238 g PO ONCE Qty: 238 0RF Rx Instructions: take per colonoscopy instructions bisacodyl [Dulcolax (bisacodyl)] 5 mg tablet,delayed release (DR/EC) 5 mg PO ONCE Qty: 4 0RF Rx Instructions: take per colonoscopy instructions Discharge Instructions Instructions: Colorectal Polyps (GEN) Additional Instructions: Carola, we were able to complete your colonoscopy today without much difficulty. Your prep was excellent, negative everything just fine. As we knew beforehand, you have some diverticulosis. It is mostly confined to the sigmoid colon, which is the most common place to get diverticulosis. I also found 1 polyp during the procedure, which I removed today. Will take about a week or 2 for them to send me the results on the nature of the polyp, and once I have that, it will inform us as to the timing of the next colonoscopy. I hope you feel great today, and have a wonderful afternoon. If you need anything at all, please do not hesitate to call or ask at any point. 1. If tolerated, consume a soft, low fiber diet for 1-2 days[address] not drive, drink alcohol, operate machinery, make critical decisions, or do activities that require coordination or balance for 24 hours. 3. Because air was put into your colon during the procedure, expelling air from your rectum (passing gas or farting) is normal. 4. You may not have a bowel movement for 1-3 days because of the colonoscopy prep. This is normal. 5. Go directly to the emergency room if you notice any of the following: Develop chills (warm to touch), or if you have a thermometer and your temperature is above 101 Difficulty breathing or difficultly swallowing Persistent vomiting Severe abdominal pain, other than gas cramps Severe chest pain Black, tarry stools Any bleeding ? exceeding one tablespoon 6. Call your physician if the site where your intravenous was started becomes red, swollen, painful, and warm to touch. 7. Your physician has reviewed your pre-procedure medications. Please continue to take those medications as previously ordered. You will be given specific information/education regarding any changes to your medications before leaving. Activity:: Activity as Tolerated Diet:: As Tolerated Discharge Orders Discharge Orders: Discharge Order (Routine); Ordered 11/27/23 Ordered By: Joni Whyte DS: Diagnosis Discharge Diagnosis (1) Encounter for screening colonoscopy: Status: Acute
--- NOTE | 2023-11-27 15:17 | W.PM.HP.N ---
Date of service: 11/28/23 Assessment and Plan Assessment and plan (1) Encounter for screening colonoscopy: Status: Acute Assessment and plan: We reviewed the plan for a screening colonocsopy today. We can proceed with the procedure as planned. History of Present Illness History of Present Illness Chief Complaint: screening colonscopy Narrative: Carola is a 62 year old woman wuth a history of diverticulitis who needs her first screening colonoscopy PFSH All Active Problems Encounter for screening colonoscopy (Acute) COVID (Acute) Umbilical hernia (Acute) Aortic atherosclerosis (Acute) Family history of Crohn's disease (Acute) Upper respiratory infection with cough and congestion (Acute) Hepatic steatosis (Acute) Medical History Cholecystitis with cholelithiasis Surgical History History of laparoscopic cholecystectomy (~01/03/19) Closed right trimalleolar fracture (12/24/18) DOI: 12/24/18 DOS: 12/26/18 S/P ORIF (open reduction internal fixation) fracture right ankle 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 29 years ago per pt. History of hysterectomy History of section Social History Smoking/Tobacco Use Status: Never Smoking risk assessment performed?: Yes Drug use: Never Substance use type: does not use Housing: house Do you feel safe at home: Yes Do you feel safe in your relationship?: Yes Meds Allergies and Home Medications Allergies Allergy/AdvReac Type Severity Reaction Status Date / Time cefazolin AdvReac Mild Nausea and Verified 09/14/23 10:09 hives Home Medications Medication Instructions Recorded Confirmed Type ibuprofen 200 mg tablet (Ibuprofen 600 mg PO PRN 04/25/13 09/14/23 History IB) Exam Const General: cooperative, healthy appearing and not in acute distress Neck Neck: normal visual inspection, no lymphadenopathy and supple Resp Effort & Inspection: normal respiratory effort Auscultation: clear to auscultation bilaterally Cardio Jugular venous pressure: no JVD Rate: regular rate Rhythm: regular rhythm Heart Sounds: S1 normal and S2 normal GI Inspection: normal to inspection Palpation: soft, no guarding, no hernias and nontender Percussion: normal to percussion Auscultation: normal bowel sounds Neuro General: patient alert, patient awake and patient oriented x3 Psych Appearance: grossly normal
--- NOTE | 2023-11-27 15:20 | COLE_ITS ---
Date of service: 11/28/23 Time of Service: 08:46 Colonoscopy Report Date of procedure: 11/28/23 Pre-op diagnosis general: screening colonoscopy Post-op diagnosis procedure note: other (Sigmoid diverticulosis, rectal polyp) Procedure: colonoscopy Surgeon: Joni Whyte Anesthesia Type: General:No Airway Estimated blood loss (mL): 5 Pathology: other (Diverticulosis extending from about 15 cm beyond the anal verge to about 25. 0.25 cm rectal polyp) Complications: None Disposition: same day Indications: Carola is a 62 year old woman with a history of diverticulitits who needs her first screening colonoscopy Prep: Miralax/Dulcolax Procedure Start Time: 08:09 Procedure End Time: 08:34 Retraction Time: 14 Findings: Sigmoid diverticulosis and 0.25 cm flat rectal polyp Procedure Description: After the induction of monitored anesthetic care, and with the patient in left lateral decubitus position, I began by performing an external anorectal exam.? Perineum and skin were normal, as was the anal verge.? There was no evidence of external hemorrhoids.? Next, I performed a digital rectal exam.? I did appreciate any abnormal findings.? Next, I advanced a colonoscope into the rectal vault.? I performed retroflexion.? This appeared normal.? Using insufflation, I then advanced the colonoscope beyond the rectal folds and into the sigmoid colon before advancing towards the cecum.? The quality of the prep was outstanding.? The scope was noted to be in the cecum by identification of the ileocecal valve and appendiceal orifice.? I then began withdrawing the colonoscope using repeated irrigation as necessary for full evaluation of the colonic mucosa. There was sigmoid diverticulosis that extended from about 25 cm down to about 15 cm. There were narrow mouth. There were no stigmata of recent bleeding. Once the scope was withdrawn to the level of the rectum, great care was taken to examine portions of the rectal folds.? In the upper portion of the rectal vault was a 0.25 cm flat polyp. This was removed with cold forceps. There was minimal bleeding. Finally, the scope was withdrawn and the patient was brought to the same-day surgery recovery unit as the anesthetic wore off. ?The findings and instructions were shared with the patient prior to discharge. [place] Bowel Prep [place] Bowel Prep Right Colon: 3 Left Colon: 3 Transverse Colon: 3 Total Score: 9
[2023-11-28 07:14] VITALS: BP 146/74; PULSE 88; RESP 16; TEMP 37; O2SAT 98
[2023-11-28] MEDS: Lactated Ringers 1,000 ML 80 ML IV (07:20)
--- NOTE | 2023-11-28 07:55 | W.PREOPHP ---
Assessment and Plan Assessment and plan (1) Encounter for screening colonoscopy: Status: Acute Assessment and plan: We reviewed the plan for screening colonoscopy today as part of routine health maintenance, as well as the risks and benefits of the procedure. She was able to provide informed consent, and we will proceed as planned. History of Present Illness History of Present Illness Chief Complaint: Screening colonoscopy Narrative: Stage is 62 years old. She has a past medical history that is most significant for diverticulitis. She needs her first screening colonoscopy. 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 29 years ago per pt. History of hysterectomy History of section Social History Smoking/Tobacco Use Status: Never Smoking risk assessment performed?: Yes Drug use: Never Substance use type: does not use Housing: house Do you feel safe at home: Yes Do you feel safe in your relationship?: Yes Meds Allergies and Home Medications Allergies Allergy/AdvReac Type Severity Reaction Status Date / Time cefazolin AdvReac Mild Nausea and Verified 11/28/23 06:58 hives Home Medications Medication Instructions Recorded Confirmed Type ibuprofen 200 mg tablet (Ibuprofen 600 mg PO PRN 04/25/13 11/28/23 History IB) Exam Const General: cooperative, healthy appearing and not in acute distress Neck Neck: normal visual inspection, no lymphadenopathy and supple Resp Effort & Inspection: normal respiratory effort Auscultation: clear to auscultation bilaterally Cardio Jugular venous pressure: no JVD Rate: regular rate Rhythm: regular rhythm Heart Sounds: S1 normal and S2 normal GI Inspection: normal to inspection Palpation: soft, no guarding and nontender Percussion: normal to percussion Auscultation: normal bowel sounds Neuro General: patient alert, patient awake and patient oriented x3 Psych Appearance: grossly normal Results Last Vital Signs Temp 98.6 F 11/28/23 07:14 Pulse 88 11/28/23 07:14 Resp 16 11/28/23 07:14 BP 146/74 H 11/28/23 07:14 Pulse Ox 98 11/28/23 07:14
[2023-11-28 07:58] VITALS: BMI 32.8
--- NOTE | 2023-11-28 07:58 | W.ANESPRE ---
General Info Date of Service Date Performed: 11/28/23 Height: 5 ft 4 in Weight: 86.7 kg Body Mass Index (BMI): 32.8 Surgical Procedure: Operation Date: 11/28/23 08:05 Proposed Procedure Side Surgeon rani Whyte MD Meds Allergies and Home Medications Allergies Allergy/AdvReac Type Severity Reaction Status Date / Time cefazolin AdvReac Mild Nausea and Verified 11/28/23 06:58 hives Home Medication Medication Instructions Recorded ibuprofen 200 mg tablet (Ibuprofen 600 mg PO PRN 04/25/13 IB) Current Visit Medications: Current Medications Generic Name Dose Route Start Last Admin Trade Name Freq PRN Reason Stop Dose Admin Hyoscyamine Sulfate 0.125 mg 11/27/23 15:21 Hyoscyamine 0.125 Mg Sl/Oral/Chew SL 12/27/23 15:20 DIRECTED PRN Ringer's Solution 1,000 mls @ 80 mls/hr 11/28/23 06:00 11/28/23 07:20 IV 11/28/23 23:59 80 mls/hr INFUSION JESUS Administration IV Miscellaneous Supplies 1 each 11/28/23 06:00 Iv Access IV 11/28/23 23:59 DIRECTED JESUS Ondansetron HCl 4 mg 11/27/23 15:21 Ondansetron 4 Mg/2 Ml Vial IVP 12/27/23 15:20 Q4H PRN PRN Nausea / Vomiting Sodium Chloride 0 ml 11/28/23 06:00 Normal Saline Flush 10 Ml Syr IV 11/28/23 23:59 PRN PRN Sodium Chloride 0 ml 11/28/23 06:00 Normal Saline 10 Ml Vial IJ 11/28/23 23:59 DIRECTED PRN Sterile Water 0 ml 11/28/23 06:00 Water,Injection,Sterile 10 Ml Vial IJ 11/28/23 23:59 DIRECTED PRN PFSH Active Problems Active Problems: Problem Status Onset Code Encounter for screening colonoscopy Z12.11 COVID U07.1 Umbilical hernia K42.9 Aortic atherosclerosis I70.0 Family history of Crohn's disease Z83.79 Upper respiratory infection with cough and congestion J06.9 Hepatic steatosis Medical History Medical History Cholecystitis with cholelithiasis Surgical History Surgical History History of laparoscopic cholecystectomy (~01/03/19) Closed right trimalleolar fracture (12/24/18) DOI: 12/24/18 DOS: 12/26/18 S/P ORIF (open reduction internal fixation) fracture right ankle 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 29 years ago per pt. History of hysterectomy History of section Tobacco Smoking/Tobacco Use Status: Never Substance Use Substance use: Never Substance use type: does not use Vital Signs and Lab Results Vital Signs Most Recent Vital Signs in EMR: Most Recent Vital Signs Temp Pulse Resp BP Pulse Ox 37.0 C 88 16 146/74 H 98 11/28/23 07:14 11/28/23 07:14 11/28/23 07:14 11/28/23 07:14 11/28/23 07:14 Lab Results Blood Type / Crossmatch: No Data to Display Complete Blood Count: No Data to Display Complete Metabolic Panel: No Data to Display Liver Function Panel: No Data to Display Coagulation Panel: No Data to Display Cardiac Panel: No Data to Display Arterial Blood Gas: No Data to Display Venous Blood Gas: No Data to Display Pancreas Panel: No Data to Display Thyroid Panel: No Data to Display Infectious Disease: No Data to Display Blood Cultures: No Data to Display Toxicology Panel: No Data to Display Anesthesia Assessment and Plan Anesthesia History Personal History: No History of Anesthesia Complications Family History: No Family History of Anesthesia Complications Exercise Tolerance Exercise Tolerance: Metabolic Equivalents<4 Pertinent Negatives Pertinent Negatives: No Symptoms of GERD Cardiac & Pulmonary Exam Cardiac Exam: Normal S1/S2 Heart Sounds Pulmonary Exam: Clear Bilateral Breath Sounds Implantable Cardiac Device Does patient have a Pacemaker or an ICD?: No Airway Exam Known Difficult Airway: No Mallampati Class: 2 Mouth Opening: Normal (> 3cm) Thyromental Distance: Greater than 3 cm Neck Range of Motion: Full ROM Neck Circumference: Normal Teeth Condition: Normal Dentition ASA Classification ASA Score: ASA 2 Emergency Case?: No NPO Status NPO Status: NPO Clears >2 hours, Solids >8 hours Anesthesia Plan Resuscitation Status: Full Code Anesthesia Technique: General Anesthesia Airway Planned: Natural Airway Monitors Used: Standard Monitors
--- NOTE | 2023-11-28 08:34 | BOWEL_PTH ---
PATIENT: Carola Dinh LOC: [facility] U#:[id number] AGE/SX: 62/F ROOM: RE11/28/[address]: Joni Whyte MD : 1960 BED: DIS: 11/28/2023 SPEC #: [id number] RECD: 11/28/23 12:57 STATUS: TONIA REQ #: [id number] BABAR: 11/28/23 08:[address]: Joni Whyte DEPT: Surgical Specimen RECD BY: Katerina Shirley ENTERED: 11/28/23 12:58 SP TYPE: Bowel OTHR DR: Unknown,Unknown Tissues: 1 - BIOPSY BOWEL Procedures: GROSS AND MICRO LEVEL 4 Comments: [id number]
[2023-11-28 08:43] VITALS: BP 140/66; PULSE 81; RESP 16; TEMP 36.6; O2SAT 98
--- NOTE | 2023-11-28 08:49 | W.ANESPOSTOP ---
Postoperative Evaluation Date, Time and Location Date Performed: 11/28/23 Time Performed: 08:49 Patient Location: Day Surgery Unit Vital Signs Most Recent Imported Vital Signs: Most Recent Vital Signs Temp Pulse Resp BP Pulse Ox 36.6 C 81 16 140/66 98 11/28/23 08:43 11/28/23 08:43 11/28/23 08:43 11/28/23 08:43 11/28/23 08:43 Pain Score Most Recent Pain Score: Most Recent Pain Score Pain Level 0 11/28/23 08:43 Assessment Mental Status: Awake (Alert & Oriented to Patient Baseline) Airway and Respiratory Function: Patent airway with normal (patient baseline) respiratory exam Cardiovascular Function: Hemodynamically Stable Hydration Status: Adequately Hydrated Nausea & Vomiting: No Nausea or Vomiting Pain: Pt. Denies Any Pain Peripheral Nerve Block: Patient did not receive a nerve block
[2023-11-28 08:58] VITALS: BP 121/63; PULSE 72; RESP 18; TEMP 36.6; O2SAT 98
== END 2023-11-28 09:16 | disposition home or self-care (01) ==
LOC: SUR 06:40
PROVIDERS: Visit Provider Surgery
PROC: 0DJD8ZZ Inspection of Lower Intestinal Tract, Via Natural or Artificial Opening Endoscopic (ICD-10-PCS; CPT 45378; principal; 2023-11-28 08:00)
DX: Z12.11 Encounter for screening for malignant neoplasm of colon (principal); Z83.79 Family history of other diseases of the digestive system; D12.8 Benign neoplasm of rectum; K57.30 Diverticulosis of large intestine without perforation or abscess without bleeding
CPT/HCPCS: 45380; 88305; J2001; J2704

== ENCOUNTER 2024-05-21 00:45 | Outpatient (CLI) | payer OTHER, SELFPAY ==
--- NOTE | 2024-05-21 | DI.MAMMO_ITS ---
Exam(s) MAMMO SCREENING EXAM: MAMMO SCREENING CLINICAL HISTORY: SCREENING, Z12.31. TECHNIQUE: Bilateral full field digital CC and MLO mammographic images were obtained with 3D tomosyn thesis and utilizing computer aided detection (CAD). COMPARISON: None. This is a baseline mammogram on this 63-year-old. FINDINGS: Fibroglandular tissue is moderately dense. In the right breast there are multiple partially calcified nodules which are most probably benign james cified fibroadenomas. In the left breast medial of center there is an noncalcified nodular density measuring 7 by 8 mm and located 3 cm medial of the nipple on the CC view. More laterally there is a smaller partially calcifi ed nodule in the left breast which probably another fibroadenoma. There is no significant architectural distortion nor skin thickening-retraction. IMPRESSION: 1. Benign-appearing bilateral calcified nodules which are probably fibroadenomas. These are more nume zahira in the right breast. 2. There is a noncalcified 7 x 8 mm nodule medial of center in the left breast. Spot compression CC v iew and ultrasound are recommended. BI-RADS Category 0 - Incomplete: Need additional imaging evaluation Breast Density - Category B - Scattered areas of fibroglandular density Breast density Category C or D implies that the patient has dense breast tissue. Dense breast tissue can make it harder to find cancer on a mammogram. Dense breast tissue is also associated with an incr eased risk of breast cancer. This information about the result of the mammogram report was provided to the patient to raise their awareness. Use this report when you speak with the patient about their risks for breast cancer, which includes their family history. At that time, you may recommend additional screening tests (Ultrasoun d or MRI) as these tests may add significant information. A negative radiographic report should not delay biopsy if a dominant or clinically suspicious mass is present. Up to ten percent of cancers are not identified on mammography. A negative report may reinforce clinical impression. Adenosis and dense breasts may obscure an underlying neoplasm. False positive reports average 6 to 10%. Patient will receive a letter notifying them of these results.
--- NOTE | 2024-05-21 15:09 | DI.RAD_ITS ---
Exam(s) XR ANKLE RT COMPLETE EXAM: XR ANKLE RT COMPLETE CLINICAL HISTORY: ANKLE FRACTURE IN 2019, STILL HAVING PAIN. TECHNIQUE: 2D digital imaging was performed. Three images were obtained. AP, lateral and oblique vi ews were obtained. COMPARISON: CR XR ANKLE RT COMPLETE from 03/20/2019 FINDINGS: BONES: There are stable post operative changes present. The fractures appear well healed. No new fr acture or dislocation. There is a plantar calcaneal spur. There is an enthesophyte at the posterior calcaneus. JOINTS: The joint spaces are well maintained. SOFT TISSUE: Normal. IMPRESSION: Stable postoperative changes. DATA REPOSITORY: RADIATION DOSE DELIVERED:
== END 2024-05-21 01:05 ==
LOC: DI 00:45
PROVIDERS: Visit Provider Nurse Practitioner Family
DX: Z12.31 Encounter for screening mammogram for malignant neoplasm of breast (principal); Z98.890 Other specified postprocedural states; M25.571 Pain in right ankle and joints of right foot
CPT/HCPCS: 77063; 77067; 73610

== ENCOUNTER 2024-05-28 01:04 | Outpatient (CLI) | payer OTHER, SELFPAY ==
--- NOTE | 2024-05-28 | DI.MAMMO_ITS ---
Exam(s) MG MAMMO SCREEN CALL BACK UNI US BREAST LT LIMITED EXAM: MG MAMMO SCREEN CALL BACK UNI CLINICAL HISTORY: NONCALCIFIED 7X8 NODULE MEDIAL CENTER LEFT BREAST R92.8 ABNL MAMMO. TECHNIQUE: Craniocaudal and mediolateral oblique spot compression digital Mammography views of the l eft breast with Tomosynthesis and left breast ultrasound. COMPARISON: MG MG MAMMO SCREENING from 05/21/2024 US US BREAST LT LIMITED from 05/28/2024 FINDINGS: Mammography/Tomosynthesis: Masses: Persistent circumscribed nodule noted in the inferior, medial breast in the anterior tissue Architectural Distortion: None seen. Microcalcifictions: No suspicious pleomorphic-type are seen. Skin Thickening/Nipple Retraction: None. Left breast US: Echotexture: Normal appearance of the glandular tissue. Shadowing: No suspicious foci. Cyst: 6 x 5 x 8 millimeter cyst in the 7 o'clock position 1 cm from the nipple, accounting for the ma mmographic abnormality. Few other smaller cysts are noted lower inner quadrant. Solid lesions: None seen. Ductal dilation: None. IMPRESSION: 1. No evidence of malignancy is noted. Small cyst corresponds to the mammographic nodule 2. Unless there is more urgent need, follow-up screening mammography is recommended, as per [employer] guidelines. 3. The findings were discussed with the patient on the date of the examination. BI-RADS Category 2 - Benign Findings Breast Density - Category B - Scattered areas of fibroglandular density. A negative radiographic report should not delay biopsy if a dominant or clinically suspicious mass is present. Up to ten percent of cancers are not identified on mammography. A negative report may reinforce clinical impression. Adenosis and dense breasts may obscure an underlying neoplasm. False positive reports average 6 to 10%. Patient will receive a letter notifying them of these results.
== END 2024-05-28 01:24 ==
LOC: DI 01:05
PROVIDERS: Visit Provider Nurse Practitioner Family
DX: Z12.31 Encounter for screening mammogram for malignant neoplasm of breast (principal); N60.02 Solitary cyst of left breast
CPT/HCPCS: 76642; 77063; 77067